=== PATIENT | female | born 1955 | race Caucasian/White ===

== ENCOUNTER 2021-02-04 10:41 | Outpatient (CLI) | payer MEDICARE, OTHER, SELFPAY ==
--- NOTE | ~2021-02-04 | XR_ITS ---
EXAMINATION: XR knee LT min 4V DATE: 02/04/2021 11:01 INDICATION: Left knee pain. TECHNIQUE: 4 views of left knee were obtained. COMPARISON: None. FINDINGS: Bone alignment is normal. No fracture. There is mild tricompartmental osteoarthritis charac terized by tiny marginal osteophytes. There is a small knee joint effusion. IMPRESSION: 1. Mild left knee osteoarthritis. 2. Small left knee joint effusion. Reviewed, dictated and finalized at location A.
== END 2021-02-04 10:42 | disposition home or self-care (01) ==
PROVIDERS: PCP Family Medicine; Visit Provider Physician Assistant
DX: M17.12 Unilateral primary osteoarthritis, left knee (principal); M25.462 Effusion, left knee
CPT/HCPCS: 73564

== ENCOUNTER 2021-08-03 11:16 | Emergency (ER) | payer MEDICARE, OTHER, SELFPAY ==
--- NOTE | ~2021-08-03 | CT_ITS ---
EXAMINATION: CT abdomen pelvis w con DATE: 08/03/2021 15:14 INDICATION: Abdominal pain, nausea vomiting and diarrhea. TECHNIQUE: Computed tomography (CT) of the abdomen and pelvis was performed with 100 mL Omnipaque-350 intravenous contrast. Automated exposure control and iterative reconstruction technique were employe d. The dose-length product was 349.21 mGy-cm. COMPARISON: 06/19/2011 FINDINGS: Bilateral mid to lower lung zones are clear. Heart size is normal. Atherosclerotic coronary artery ca lcific location. No pericardial or pleural effusion. Thoracic aorta is normal in caliber with no diss ection. Calcified mediastinal and left hilar lymph nodes consistent with old granulomatous disease. D iffuse hepatic steatosis with multiple fluid attenuation hepatic cysts, the largest measuring 3.6 cm in the right hepatic lobe. Gallbladder, pancreas, bilateral adrenal glands and kidneys are normal. Mu ltiple splenic calcifications consistent with old granulomatous disease. Normal gas-filled retrocecal appendix. Fluid throughout the colon and multiple loops of small bowel consistent with diarrhea. Mod erate sigmoid diverticulosis without adjacent from 3 change to suggest diverticulitis. Bladder is nor mal. No free intraperitoneal gas or fluid. No pathologically enlarged abdominal or pelvic lymphadenop athy. Mild lumbar levocurvature . Moderate to severe lumbar facet osteoarthritis with lower and left sided predominance. Large basocervical bone island at the proximal right femur. IMPRESSION: 1. Fluid throughout the large and small bowel consistent with diarrhea. Correlate for gastroenteritis . 2. Moderate sigmoid diverticulosis without evidence of acute diverticulitis. Reviewed, dictated and finalized at location B. LEAD IMPRESSION: 1. Fluid throughout the large and small bowel consistent with diarrhea. Correla te for gastroenteritis. 2. Moderate sigmoid diverticulosis without evidence of acute diverticulitis.
[2021-08-03 11:26] VITALS: BP 133/78; PULSE 105; RESP 18; TEMP 36.6; O2SAT 97
[2021-08-03 11:59] LABS: Add Urine Microscopic? YES; Appearance Urine Cloudy (Clear); Bacteria Urine Trace /hpf; Bilirubin Urine Negative (Negative); Blood Urine 1+ (Negative); Color Urine Amber (Yellow); Glucose Urine UA Negative (Negative); Ketones Urine Negative (Negative); Leukocyte Esterase Ur Negative LEU/UL (Negative); Mucus Urine Heavy /lpf; Nitrate Urine Negative (Negative); Protein Urine 2+ mg/dL (Negative); Specific Grav Ur 1.027 (1.001-1.035); Squamous Epithelial Cell Urine Few /hpf (Few); Urobilinogen Urine Negative mg/dL (<2.0); WBC Urine 0-3 /hpf
[2021-08-03 12:06] LABS: Alanine Aminotransferase 39 U/L (4-35); Albumin Level 5.5 g/dL (3.5-5.1); Alkaline Phosphatase 123 U/L (38-126); Anion Gap 14 mmol/L (8-16); Aspartate Amino Transferase 30 U/L (14-36); Blood Urea Nitrogen 14 mg/dL (7-17); Calcium 10.2 mg/dL (8.4-10.2); Carbon Dioxide 28 mmol/L (22-30); Chloride 97 mmol/L (98-107); Estimated CRCL calculation 47 ml/min; Estimated Glomerular Filt Rate > 60; Glucose 144 mg/dL (65-110); Lipase 60 U/L (23-300); Potassium 3.2 mmol/L (3.4-5.0); Sodium 139 mmol/L (137-145)
[2021-08-03 12:29] LABS: Basophils Percent Auto 0.3 % (0.2-1.2); Eosinophils Absolute Auto 0.2 K/mm3 (0-0.3); Eosinophils Percent Auto 2.2 % (0-4.4); Hematocrit 45.2 % (37.0-47.0); Hemoglobin 16.1 g/dL (12.0-15.0); Immature Granulocyte Absolute 0.06 K/mm3 (0.00-0.031); Immature Granulocyte Percent A 0.5 % (0-0.5); Lymphocytes Absolute Auto 0.68 K/mm3 (0.9-3.2); Lymphocytes Percent Auto 6.1 % (18.3-44.2); Mean Corpuscular HGB Conc 35.6 g/dl (32-36); Mean Corpuscular Hemoglobin 31.9 pg (26-34); Mean Corpuscular Volume 89.5 fl (80-100); Mean Platelet Volume 9.1 fl (7.4-10.4); Monocytes Absolute Auto 0.5 K/mm3 (0.1-0.6); Monocytes Percent Auto 4.5 % (2.6-8.5); Neutrophils Absolute Auto 9.6 K/mm3 (1.3-6.7); Neutrophils Percent Auto 86.4 % (45.5-73.1); Platelet Count Result 255 k/mm3 (150-375); Red Blood Count 5.05 M/mm3 (4.2-5.4); Red Cell Distribution Width 11.9 % (11.5-14.5); White Blood Count 11.1 K/mm3 (4.5-10.0)
--- NOTE | 2021-08-03 13:53 | ED.NAVMDI ---
HPI - Nausea/Vomiting/Diarrhea General Chief complaint: Nausea/Vomiting/Diarrhea Stated complaint: VOMITING AND DIARRHEA Time Seen by Provider: 08/03/21 13:26 Source: patient History of Present Illness HPI Narrative: Patient presents with nausea vomiting diarrhea and abdominal pain. Reports her symptoms been present for the past couple days and getting progressively worse. She is having a hard time keeping anything down today so she came to the ER for evaluation. Shorts history of diverticulosis. Her pain is over her entire abdomen is achy, constant, no clear aggravating or alleviating factors. She denies any blood bowel melena in her excretions. She does not know any sick contacts, recent antibiotics, recent camping trip/drinking out of streams. Related Data Allergies Allergy/AdvReac Type Severity Reaction Status Date / Time Penicillins Allergy Unknown RASH Verified 08/03/21 14:46 ???ANTIBIOTIC DURING AU.2007 Allergy Severe RASH--???PENICILLIN Uncoded 08/03/21 14:46 SURGERY BASE Review of Systems Review of Systems: CONSTITUTIONAL: Denies fever, chills, or sweats. EYES: Denies visual changes, redness, or discharge. ENT: Denies rhinorrhea, congestion, sore throat, or otalgia. CARDIOVASCULAR: Denies chest pain, palpitations, or edema. RESPIRATORY: Denies cough or dyspnea. GASTROINTESTINAL: Reports nausea vomiting diarrhea and abdominal pain GENITOURINARY: Denies dysuria or hematuria. SKIN: Denies rash or itching. MUSCULOSKELETAL: Denies back pain, joint pain, or myalgia. NEUROLOGIC: Denies headache, numbness, dizziness, or weakness. PSYCHIATRIC: Denies anxiety or depression. All systems reviewed & are unremarkable except as noted in HPI and below PMFSH Past Medical History Medical History (Updated 08/03/21 @ 16:38 by Juan C Worthy MD) Diverticulosis Surgical History Surgical History History of bladder suspension procedure Status post hysterectomy Status post unilateral salpingo-oophorectomy Family History Family History Father Family history of Alzheimer's disease Mother Family history of diabetes mellitus in first degree relative Family history of coronary artery disease Social History Social History Smoking status: Never smoker Second hand tobacco smoke exposure: No Alcohol intake: never Substance use: never Substance use type: does not use Gender identity (if verbalized by the patient): Female Exam Narrative: GENERAL: Well-appearing, well-nourished, and in no acute distress. HEAD: Normocephalic, atraumatic. EYES: PERRLA and EOMI. ENT: Nares clear, no rhinorrhea or epistaxis. Mucous membranes moist. NECK: Supple. No masses. No JVD CHEST: Clear to auscultation. No respiratory distress. No wheezes rales or rhonchi HEART: Regular rate and rhythm. No murmur heard. Normal peripheral pulses. ABDOMEN: Mild diffuse tenderness most noted in the left lower quadrant soft, nondistended, normal active bowel sounds. EXTREMITIES: Normal range of motion. No edema. SKIN: Warm, dry, no rash. NEURO: No focal deficits. Alert and oriented x3. PSYCH: Normal mood and affect. Course Reevaluation(s) Reevaluation #1: Patient ports feeling much improved results and plan reviewed with patient. Patient is comfortable with outpatient plan. Date: 08/03/21 Time: 16:33 Vital Signs Vital signs: Vital Signs Temperature 36.6 C 08/03/21 11:26 Pulse Rate 105 H 08/03/21 11:26 Respiratory Rate 18 08/03/21 11:26 Blood Pressure 133/78 08/03/21 11:26 Pulse Oximetry 97 08/03/21 11:26 Temperature 36.5 C 08/03/21 14:42 Pulse Rate 100 08/03/21 14:42 Respiratory Rate 18 08/03/21 14:42 Blood Pressure 129/63 08/03/21 14:42 Pulse Oximetry 100 08/03/21 14:42 MDM - Nausea/Vomiting/Diarrhea MDM Narrative Medical decisio
[2021-08-03 14:42] VITALS: BP 129/63; PULSE 100; RESP 18; TEMP 36.5; O2SAT 100
[2021-08-03] MEDS: SODIUM CHLORIDE 0.9% IV 1,000 ML 999 ML IV CONT (14:59)
[2021-08-03] MEDS: ONDANSETRON INJ 4 MG/2 ML VIAL IV PUSH (14:59)
--- NOTE | 2021-08-03 15:06 | PC.NURSE ---
Pt off floor to CT scan
== END 2021-08-03 17:03 | disposition home or self-care (01) ==
PROVIDERS: Emergency Provider Emergency Medicine; PCP Family Medicine
DX: R11.2 Nausea with vomiting, unspecified (principal); R19.7 Diarrhea, unspecified; R10.84 Generalized abdominal pain
CPT/HCPCS: 36415; 74177; 80053; 81001; 83690; 85025; 96361; 96374; 99284; J2405; J7030; Q9967

== ENCOUNTER 2023-08-29 10:23 | Outpatient (CLI) | payer MEDICARE, OTHER, SELFPAY ==
[2023-08-29 11:39] LABS: Influenza A QL RT-PCR Negative (Negative); Influenza B QL RT-PCR Negative (Negative); RSV RNA, RT-PCR Negative (Negative); SARS-CoV-2 RNA PCR Negative (Negative)
== END 2023-08-29 10:24 | disposition home or self-care (01) ==
LOC: ANHLAB 10:26
PROVIDERS: PCP Family Medicine; Visit Provider Family Medicine
DX: J06.9 Acute upper respiratory infection, unspecified (principal); Z20.822 Contact with and (suspected) exposure to COVID-19
CPT/HCPCS: 87637

== ENCOUNTER 2023-09-12 08:13 | Outpatient (CLI) | payer MEDICARE, OTHER, SELFPAY ==
--- NOTE | ~2023-09-12 | XR_ITS ---
XR chest 2V DATE: 09/12/2023 08:31 INDICATION: Cough TECHNIQUE: PA and lateral views COMPARISON: 09/11/2021 view chest FINDINGS: Normal heart size. No hilar or mediastinal enlargement. Calcified left hilar nodes consiste nt with old granulomatous disease. No pulmonary infiltrate or consolidation, pleural effusion or pulmonary vascular congestion or pneumo thorax. Osteopenia. IMPRESSION: No active cardiopulmonary disease or significant change since 09/11/2019 Reviewed, dictated and finalized at location B. GROUND CARETAKER IMPRESSION: No active cardiopulmonary disease or significant change since 2019
== END 2023-09-12 08:14 | disposition home or self-care (01) ==
LOC: ANHIMG 08:16
PROVIDERS: PCP Family Medicine; Visit Provider Physician Assistant Medical
DX: R05.9 Cough, unspecified (principal); R53.83 Other fatigue
CPT/HCPCS: 71046

== ENCOUNTER 2024-12-11 12:31 | Outpatient (CLI) | payer MEDICARE, OTHER, SELFPAY ==
--- NOTE | ~2024-12-11 | XR_ITS ---
Right Shoulder Technique: AP and axillary views were obtained. Clinical History: Pain Findings: No fracture or dislocation is seen. Osseous alignment is anatomic. The glenohumeral and acr omioclavicular joint spaces are preserved. Soft tissues are unremarkable. Impression: Unremarkable right shoulder radiographs. Reviewed, dictated and finalized at [facility]. Impression: Unremarkable right shoulder radiographs.
--- OUTSIDE RECORDS SUMMARY | 2024-12-11 12:48 | XMS_ITS | Referral Summary ---
Author Organization [facility] Address [address] [place] [address] Care Team Providers Care Offset Assistant Press Operator Name Role Phone Franco Prescott MD Primary Care Provider Alden Cerna MD Unavailable [phone] Li Rascon OT Unavailable [phone] Apryl Cummins PT Unavailable Unavailable Elijah Blake Unavailable Unavailable Martine Groves PTA Unavailable Unavailable Magda Kelley Unavailable Unava ilable Nicole Lamar Unavailable Unavailable Allergies Active Allergy Reactions Criticality Noted Date Comments Penicillin G Hives Medium 01/15/2018 Medications atorvastatin (LIPITOR) 10 mg tablet Take 1 tablet (10 mg total) by mouth daily 1 01/20/2018 Active hydroCHLOROthia zide (HYDRODIURIL) 25 mg tablet Take 0.5 tablets (12.5 mg total) by mouth daily 0 01/22/2018 Active metoprolol XL (TOPROL-XL) 25 mg 24 hr tablet Take 1 tablet (25 mg total) by mouth daily 9 01/20/[address] (PROTONIX) 40 mg EC tablet Take 1 tablet (40 mg total) by mouth daily 4 01/09/2018 Active dicyclomine (BENTYL) 10 mg capsule Take 1 capsule (10 mg total) by mouth 4 (four) times a day before meals and nightly 5 12/16/2018 Active donepeziL (ARICEPT) 5 mg tablet Take 1 tablet (5 mg total) by mouth nightly 05/13/2024 Active montelukast (SINGULAIR) 10 mg tablet Take 1 tablet (10 mg total) by mouth daily 07/21/2024 Active Active Problems Problem Noted Date Diagnosed Date Acute pancreatitis without i nfection or necrosis, unspecified pancreatitis type 08/07/2024 Joint stiffness of hand, right 03/17/2019 Disorder of wrist region 01/22/2018 Closed displaced transverse fracture of right pa tella 01/18/2018 Social History Tobacco Use Types Packs/Day Years Used Date Smoking Tobacco: Never Smokeless Tobacco: Never Alcohol Use Standard Drinks/Week Comments No 0 (1 standard drink = 0.6 oz pur e alcohol) AUDIT-C Answer Date Recorded Q1: How often do you have a drink containing alc ohol? Monthly or less 08/07/2024 Q2: How many drinks containi ng alcohol do you have on a typical day when you are drinking? 1 or 2 08/07/2024 Q3: How often do you have si x or more drinks on one occasion? Never 08/07/2024 Personal Safety Answer Date Recorded Have you ever been in or are you currently in a harmful physical or emotional relationship or is someone making you feel afraid or unsafe? Denies 08/07/2024 Comments No Sex and Gender Information Value Date Recorded Sex Assigned at Not on file Legal Sex Female 3:50 PM NEW GRAD RN Gender Identity Not on file Sexual Orientation Not on file Last Filed Vital Signs Vital Sign Reading Time Taken Comments Blood Pressure 117/68 08/08/2024 7:14 AM NEW GRAD RN Pulse 76 08/08/2024 9:25 AM NEW GRAD RN Temperature 36.6 C (97.8 F) 08/08/2024 7:14 AM NEW GRAD RN Respiratory Rate 18 08/08/2024 7:14 AM NEW GRAD RN Oxygen Saturation 95% 08/08/2024 7:1 4 AM NEW GRAD RN Inhaled Oxygen Concentration - - Weight 59 kg (130 lb) 08/07/2024 2:00 PM NEW GRAD RN Height 157.5 cm (5' 2 ) 08/07/2024 2:00 PM NEW GRAD RN Simultaneous filing. User may be unaware of other data. Body Mass Index 23.78 08/07/2024 2:00 PM NEW GRAD RN Plan of Treatment Not on file Procedures Procedure Name Priority Date/Time Associated Diagnosis Comments DEXA AXIAL SKELETON BONE DENSITY 1 OR MORE SITES Schedule Routine, Read Routine (OP Routine) 06/20/2024 11:15 AM CDT Asymptomatic menopausal state Other specified disorders of bone density and structure, unspecified site Acquired absence of both cervix and uterus SCREENING MAMMOGRAM BILATERAL W FAUSTO Schedule Routine, Read Routine (OP Routine) 12/04/2023 2:54 PM CDT Screening mammogram, encounter for from Last 3 Months or Most Recently Relevant to Health Maintenance Results * Dexa Axial Skeleton Bone Density 1 or 2 Site (06/20/2024 11:15 AM CDT) Anatomical Region Laterality Modality Body N/A Other 06/20/2024 8:03 PM CDT Narrative 06/20/2024 8:04 PM CDT EXAM DESCRIPTION: DEXA AXIAL SKELETON BONE DENSITY 1 OR MORE SITES REASON FOR STUDY: 69 y/o year old F with given history of: 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 IMPRESSION: Osteoporosis. REFERENCE: Bone mineral density: T-Score: Normal (T-score above or = -1.0) Low bone mass (T-score between -1.0 and -2.5) replaces the previously used term osteopenia Osteoporosis (T-score = or below -2.5) Z-Score: Within the expected range for age (Z-score above -2.0) Below the expected range for age (Z-score is -2.0 or below) Please see below follow up recommendations. Medical evaluation for secondary causes of low bone mineral density may be appropriate. FRAX is a World Health Organization validated fracture risk assessment tool that calculates a person's 10 year probability of a major osteoporosis related fracture and hip fracture. According to the National Osteoporosis Foundation guidelines, postmenopausal women and men age 50 or older with low bone mass and a 10 year probability of a major osteoporosis related fracture = or greater than 20% or a 10 year probability of a hip fracture = or greater than 3% should be considered for pharmacological treatment for the prevention of osteoporosis. For further information, including treatment recommendations, please refer to the 2019 ISCD Official Positions (http://www.iscd.org) and the NOF's Clinician's Guide to Prevention and Treatment of Osteoporosis (http://www.nof.org/professionals/clinical-guidelines) THIS IS AN ELECTRONICALLY VERIFIED FINAL REPORT 06/20/2024 8:04 PM - Electronically signed by Moe Moreau M.D. 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 IMPRESSION: Osteoporosis. REFERENCE: Bone mineral density: T-Score: Normal (T-score above or = -1.0) Low bone mass (T-score between -1.0 and -2.5) replaces thepreviously used term osteopenia Osteoporosis (T-score = or below -2.5) Z-Score: Within the expected range for age (Z-score above -2.0) Below the expected range for age (Z-score is -2.0 or below) Please see below follow up recommendations. Medical evaluation forsecondary causes of low bone mineral density may be appropriate. FRAX is a World Health Organization validated fracture risk assessmenttool that calculates a person's 10 year probability of a major osteoporosisrelated fracture and hip fracture. According to the National OsteoporosisFoundation guidelines, postmenopausal women and men age 50 or older with low bonemass and a 10 year probability of a major osteoporosis related fracture = or greater than 20% or a 10 year probability of a hip fracture = or greaterthan 3% should be considered for pharmacological treatment for the preventionof osteoporosis. For further information, including treatment recommendations, please referto the 2019 ISCD Official Positions (http://www.iscd.org) and the NOF's Clinician's Guide to Prevention and Treatment of Osteoporosis (http://www.nof.org/professionals/clinical-guidelines) THIS IS AN ELECTRONICALLY VERIFIED FINAL REPORT 06/20/2024 8:04 PM - Electronically signed by Moe Moreau M.D. MF: MIA Report ID: [id number] Reading Location: [place] [address] Franco Prescott MD IMG DXA PROCEDURES Viviana l Result * Screening Mammogram Bilateral W Fausto (12/04/2023 2:54 PM CDT) Anatomical Region Laterality Modality Breast Bilateral Mammography 12/05/2023 9:42 AM CDT Impressions 12/05/2023 9:42 AM CDT There is no mammographic evidence of malignancy. A 1 year screening mammogram is recommended. BI-RADS: 1 - Negative. The patient has been or will be contacted. The patient will be entered into a reminder system with a target due date of 1 year for her next mammogram. Electronically signed by: Magaly Arreola M.D. Narrative 12/05/2023 9:42 AM CDT EXAMINATION: SCREENING MAMMOGRAM BILATERAL W FAUSTO ORDERING HEALTHCARE PROVIDER: SELF SCREENING MAMMOGRAM HISTORY: Routine screening mammography. COMPARISON: 08/24/2022, 01/28/2019, 06/26/2016 TECHNIQUE: CC and MLO views of the bilateral breasts were obtained with digital technique using breast tomosynthesis with C view. Computer aided detection was utilized. FINDINGS: DENSITY: There are scattered fibroglandular elements in the bilateral breasts. BREASTS: There are no suspicious masses, suspicious calcifications, or other suspicious findings in either breast. There has been no suspicious interval change. us Self Screening Mammogram IMG MAMMO PROCEDURES Fi nal Result from Last 3 Months or Most Recently Relevant to Health Maintenance Insurance [employer] [address] MEDICARE [facility] MEDICARE [facility] MEDICARE [facility] WORKERS COMPENSATION GENERIC Member Subscriber Plan / Payer (Ef fective 2018-Present) Name:Yoanna Yuan Member ID:[id number] Relation to Subscriber:Self Name:Yoanna Yuan Subscriber ID:xx [id number] Payer ID:[id number] Type:WORKERS COMPENSATION Address: [address] [address] [place] [address] Care Teams Offset Assistant Press Operator Relationship Specialty Start Date End Date Franco Prescott MD [address] [place] [address] PCP - General 01/15/18 Alden Cerna MD [address] [facility] [place] [address] Surgeon Orthopedic Surgery 02/19/18 Li Rascon OT [address] [place] [address] [place] [address] Occupational Therapist Occupational Therapy 02/26/18 Apryl Cummins, PT Physical Therapist Physical Therapy 03/07/18 Elijah Blake Roofing Sales Representative Physical Therapy 03/08/18 Martine Groves, TRANSMISSION SUPERINTENDENT Roofing Sales Representative Physical Therapy 03/12/18 Magda Kelley Physician Retail Planning Manager Orthopedic Surgery 03/27/18 Nicole Lamar COTA Occupational Therapist Occupational Therapy 03/27/18 [facility] [address] [place] [id number] Prosthetics Technician 02/19/18
--- OUTSIDE RECORDS SUMMARY | 2024-12-11 12:48 | XMS_ITS | Clinical Summary ---
Author Organization [facility] Address [address] [place] [address] Care Team Providers Care Inspector Soldering Name Role Phone Franco Prescott MD Primary Care Provider Alden Cerna MD Unavailable [phone] Li Rascon OT Unavailable [phone] Apryl Cummins PT Unavailable Unavailable Elijah Blake [...] transverse fracture of right pa tella 01/18/2018 Surgical History Surgery Date Site/Laterality Comments HYSTERECTOMY OOPHORECTOMY Medical History Medical History Date Comments Hypertension GERD (gastroesophageal reflux disease) H/O: hysterectomy Family History Medical History Relation Name Comments Alcohol abuse Brother Alzheimer's disease Father Heart disease Mother Hypertension Mother Breast cancer Neg Hx Ovarian cancer Neg Hx Thyroid cancer Neg Hx Relation Name Status Comments Brother Father Mother Social History Tobacco Use Types Packs/Day Years [...] on file 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 Gender Identity Not on file Sexual Orientation Not on file Obstetrics History Para Term AB IAB SAB Ectopic Multiple Livin g Live Births 2 2 2 Date Outcome GA Total Labor Labor/2nd/3rd Weight Sex Type Anes PTL Noemi A1 A5 Name Clin Term Term Last Filed Vital Signs Vital Sign Reading Time Taken Comments Blood Pressure 117/68 08/08/2024 7:14 AM RETAIL ASSISTANT STORE MANAGER Pulse 76 08/08/2024 9:25 AM RETAIL ASSISTANT STORE MANAGER Temperature 36.6 C (97.8 F) 08/08/2024 7:14 AM RETAIL ASSISTANT STORE MANAGER Respiratory Rate 18 08/08/2024 7:14 AM RETAIL ASSISTANT STORE MANAGER Oxygen Saturation 95% 08/08/2024 7:1 4 AM RETAIL ASSISTANT STORE MANAGER Inhaled Oxygen Concentration - - Weight 59 kg (130 lb) 08/07/2024 2:00 PM RETAIL ASSISTANT STORE MANAGER Height 157.5 cm (5' 2 ) 08/07/2024 2:00 PM RETAIL ASSISTANT STORE MANAGER Simultaneous filing. User may be unaware of other data. Body Mass Index 23.78 08/07/2024 2:00 PM RETAIL ASSISTANT STORE MANAGER Plan of Treatment Health Maintenance Due Date Last Done Comments Colon Cancer Screening-Colonoscopy 1955 Depression Screening 1955 Hepatitis C Screening 1955 Hepatitis B Screening 1972 Zoster Vaccine (1 of 2) 2004 Well Visit 65+ 2019 Pneumococcal vaccine 65+ (2 of 2 - PPSV23) 09/26/2020 09/26/2019 Covid-19 Vaccine (2 - 2023-2 5 season) 2024 11/01/2020 Breast Cancer Screening-Mammogram 12/03/2024 12/04/2023, 08/24/2022, 01/28/2019, Additional history exists Influenza Vaccine (Season Ended) 2025 05/11/2020, 09/26/2019, 06/08/2018 Fall Risk Assessment 08/08/2025 08/08/2024 DTaP/Tdap/Td Vaccine (2 - Td or Tdap) 11/19/2025 11/20/2015 Osteoporosis Screening-Bone Density Scan 06/20/2026 06/20/2024 Procedures Procedure Name Priority Date/Time Associated Diagnosis [...] F with given history of: 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 MF: MIA Report ID: [id number] Reading Location: [place] [address] Franco Prescott MD IMG DXA PROCEDURES Viviana [...] Most Recently Relevant to Health Maintenance Insurance [place] [employer] [place] MEDIC[place] [facility] [place] [employer] [place] [facility] MEDICARE [facility] HARDY Uribe [id number] [employer] GENERIC Member Subscriber Plan / Payer (Ef fective 2018-Present) Name:Yoanna Yuan Member ID:[id number] Relation to Subscriber:Self Name:Yoanna Yuan Subscriber ID:xx [id number] Payer ID:[id number] Type:WORKERS COMPENSATION Address: [address] [address] [place] [address] Care Teams Inspector Soldering Relationship Specialty Start Date End Date Franco Prescott MD [address] [place] [address] PCP - General 01/15/18 Alden Cerna MD [address] [facility] [place] [address] Surgeon Orthopedic Surgery 02/19/18 Li Rascon OT [address] [place] [address] Occupational Therapist Occupational Therapy 02/26/18 Apryl Cummins, CARSON Physical Therapist Physical Therapy 03/07/18 Elijah Blake [employer] Physical Therapy 03/08/18 Martine Groves PTA [employer] Physical Therapy 03/12/18 Magda Kelley Physician [employer] Machine Operator Orthopedic Surgery 03/27/18 Nicole Lamar COTA Occupational Therapist Occupational Therapy 03/27/18 Rachel Munoz [facility] [address] [place] [address] Power Bender Operator 02/19/18
== END 2024-12-11 12:32 | disposition home or self-care (01) ==
PROVIDERS: PCP Family Medicine; Visit Provider Family Medicine
DX: M25.511 Pain in right shoulder (principal)
CPT/HCPCS: 73030

== ENCOUNTER 2025-06-05 11:37 | Outpatient (CLI) | payer MEDICARE, OTHER, SELFPAY ==
--- NOTE | ~2025-06-05 | XR_ITS ---
EXAMINATION: XR chest 2V, 06/05/2025 12:07 CDT HISTORY: R07.9 - Chest pain, unspecified COMPARISON: No comparisons available. Technique: 2 views obtained. Findings: The lungs are clear, no effusion. No pneumothorax. Heart is normal size. Mediastinal and hilar contours are within normal limits. Bony thorax no acute abnormality. Impression: No acute cardiopulmonary abnormality. Reviewed, dictated and finalized at location P. Impression: No acute cardiopulmonary abnormality.
== END 2025-06-05 11:38 | disposition home or self-care (01) ==
PROVIDERS: PCP Family Medicine
DX: R07.9 Chest pain, unspecified (principal); R07.81 Pleurodynia
CPT/HCPCS: 71046

== ENCOUNTER 2025-07-08 08:51 | Outpatient (CLI) | payer MEDICARE, OTHER, SELFPAY ==
--- OUTSIDE RECORDS SUMMARY | 2016-06-12 05:45 | XMS_ITS | Continuity of Care Document ---
Author Organization [facility] Address [address] [place] [id number] Phone Care Team Providers Care Leadership Development Instructor Name Role Phone Robert Young MD Unavailable Unavailabl e Allergies, Adverse Reactions, Alerts Substance Reaction Status Criticality PSEUDOEPHEDRINE HCL stomach pain, nausea(severe) Activ e No Information Medications Medication Instructions Dosage Effective Dates (start - stop) Status Comments pravastatin 40 mg Tab take 1 tablet (40M G) by oral route every day 40 MG - Active trazodone 100 mg Tab take 1 tablet (100M G) by oral route every day at bedtime 100 MG - Active Procedures Procedure Date Colonoscopy Flex; Dx (sep Pro) 16 Colonoscopy Flex; W/remov Les- 12 Colonoscopy Flex; Dx (sep Pro) 12 Ugi Endo; W/bx 1/mx ASC Facility Charge ASC Facility Charge Level Iv-surg Path Gross/micro 12 Offic Cons New/estab Mod Iron Iron Binding Capacity Ferritin Ag-immunoassay; Hep B Surface 2 Hepatitis B Surface Antibody Hepatitis C Antibody; Hepatitis B Core Antib; Igg & 2 [id number]; Phenotype 12 Ogrvo-[id number]-[id number]; Tot Antinuclear Antib Advance Directives Directive Yes / No Effective Date File Name No Information Encounters Encounter Description Practice Location Reason(s) For Visit Diagnoses Date Provider Providers Copied on Encounter [facility], [address] [place] [address], [id number] tel:[phone] [facility] [employer] No Information 6 Hector graves [address] [place] [address], [id number], [place]. tel:[phone] [facility], [address] [place] [address], [id number] tel:[phone] [facility] [employer] No Information 6 Judith Kay. [address] [place] [address], [id number], [place]. tel:[phone] Referring Provider: German Roth MD, [address] [place] [address], [id number]. tel:[phone] [facility] [employer] [facility], [address] [place] [address], [id number] tel:[phone] [facility] [employer] No Information 2 Larry To. [address] [place] [address], [id number], [place]. tel:[phone] Referring Provider: German Roth MD, [address] [place] [address], [id number]. tel:[phone] [facility] [employer] [facility], [address] [place] [address], [id number] tel:[phone] [facility] [employer] 2 Keo Abad. [address] [place] [address], [id number], [place]. tel:[phone] Referring Provider: German Roth MD, [address] [place] [address], [id number]. tel:[phone] [facility] [employer], [address] [place] [address], [id number] tel:[phone] [facility] No Information 2 [facility]. [address] [place] [address], [id number], . tel:[phone] Referring Provider: Pollo Rutherford, [address] [place] [address], [id number] . tel:[phone] [facility], [address] [place] [address], [id number] tel:[phone] [facility] [employer] No Information 2 Keo Abad. [address] [place] [address], [id number], [place]. tel:[phone] Referring Provider: German Roth MD, [address] [place] [address], [id number]. tel:[phone] Offic Cons New/estab Mod [facility], [address] [place] [address], [id number] tel:[phone] [facility] [employer] Anxiety disorder, generalizedAr thritis, unspecified siteAbnormal Liver Enzyme Levels Nov- 2 Keo Abad. [address] [place] [address], [id number], [place]. tel:[phone] Referring Provider: Angelic Caban MD, [address] [place], [address]. tel:[phone] [facility], [address] [place] [address], [id number] tel:[phone] [facility] [employer] No Information 2 Keo Abad. [address] [place] [address], [id number], [place]. tel:[phone] Referring Provider: Angelic Caban MD, [address], [place], [address]. tel:[phone] Family History Family Member Type Diagnosis Age At Onset No Information Payers Payer name Insurance type Covered green party ID [id number] Social History Type Description Quantity Date Captured Comments Sex Female Smoking Status No Information Chief Complaint And Reason For Visit No Information Reason For Referral Reason For Referral No Information History Of Present Illness Encounter Date Complaint History Of Prese nt Illness No Information Functional Status Date Functional Assessmen t No Information Instructions Date Instruction Additional Infor mation No Information Assessments Type Assessment Date No Information Patient Care Teams Name Effective Dates (start - stop) Status Members No Information
--- NOTE | 2025-07-08 | EST_ITS ---
Patient Info Name: Yoanna Yuan Age: 70 years : 1955 Gender: Female Ht: 62 in Wt: 125 lbs BSA: 1.58 m2 HR: 59 bpm BP: 130 / 67 mmHg Exam Date: 07/08/2025 10:54 AM Patient Status: O Admit Date: 07/08/2025 Exam Type: CA stress waldo w NM A regadenoson stress test was performed. Staff Referring Physician: Felipe Mustafa Attending Provider: Felipe Mustafa Exercise Technologist: Renée Van Exercise Physician: Janes Cain DO Summary 1. 1. Negative lexiscan stress test for ischemic ST changes by ECG criteria. 2. 2. Stable hemodynamics throughout the test. 3. 3. Nuclear scan to follow and will be reported separately. Please correlate with it. 4. 4. Patient informed of the above results. Protocol: Lexiscan Stress ECG Details Stage: REST Duration (min): 2 min : 10 sec HR (bpm): 60 SBP (mmHg): 130 DBP (mmHg): 67 Stage: REST Duration (min): 8 min : 48 sec HR (bpm): 55 SBP (mmHg): 130 DBP (mmHg): 67 Stage: STAGE 1 Duration (min): 0 min : 59 sec HR (bpm): 73 SBP (mmHg): 133 DBP (mmHg): 70 Stage: RECOVERY Duration (min): 1 min : 0 sec HR (bpm): 99 SBP (mmHg): 133 DBP (mmHg): 70 Stage: RECOVERY Duration (min): 2 min : 0 sec HR (bpm): 90 SBP (mmHg): 133 DBP (mmHg): 70 Stage: RECOVERY Duration (min): 3 min : 0 sec HR (bpm): 83 SBP (mmHg): 118 DBP (mmHg): 74 Stage: RECOVERY Duration (min): 3 min : 7 sec HR (bpm): 86 SBP (mmHg): 118 DBP (mmHg): 74 Rest HR: 55 bpm Peak HR: 101 bpm Rest Sys BP: 130 mmHg Peak Sys BP: 133 mmHg Max Pred HR: 149 bpm % Max Pred HR: 68 % Target HR: 127 bpm Max RPP: 13,433 bpm*mmHg Termination Reason: Completed protocol Cardiac Symptoms: Shortness of breath Total Time: 1 min : 0 sec Rest Flores BP: 67 mmHg Peak Flores BP: 70 mmHg Total Dose: 0.4 mg Resting ECG Sinus bradycardia, borderline ST-T wave abnormality in ant/inf leads. Stress ECG No ST changes. Arrhythmias None. Report Signatures
--- NOTE | ~2025-07-08 | NM_ITS ---
EXAMINATION: NM waldo stress w perfusion DATE: 07/08/2025 12:38 INDICATION: Chest pain TECHNIQUE: Rest images were obtained following intravenous administration of 10.2 mCi Tc99m tetrofosmin (Myoview). The patient was infused intravenously with Lexiscan (Regadenoson). Then, 30 mCi Tc99m tetrofosmin (Myoview) was administered intravenously, and stress images were obtained. Data was recons tructed into short axis and horizontal and vertical long axis SPECT images. Gated SPECT images were also obtained. COMPARISON: None. FINDINGS: There is no definite reversible or fixed perfusion abnormality to suggest ischemia or infarction. There is normal left ventricular chamber size, wall motion and ejection fraction. Left ventricular ejection fraction measures >70%. IMPRESSION: 1. Normal myocardial perfusion at rest and during stress. 2. Left ventricular ejection fraction measuring >70%. Reviewed, dictated and finalized at location A. [facility] TE[facility]
--- OUTSIDE RECORDS SUMMARY | 2025-07-08 09:22 | XMS_ITS | Clinical Summary ---
Author Organization [facility] Address [address] [place] [address] Care Team Providers Care Thermoplastic Technician Name Role Phone Franco Prescott MD Primary Care Provider Alden Cerna MD Unavailable [phone] Li Rascon OT Unavailable [phone] Apryl Cummins PT Unavailable Unavailable Elijah Blake Unavailable Unavailable Martine Groves PTA Unavailable Unavailable Magda Kelley Unavailable Unava ilable Nicole Lamar BYERS Unavailable Unavailable Allergies Active Allergy Reactions Criticality [...] transverse fracture of right pa tella 01/18/2018 Encounters Date Type Department Care Team Description 06/26/2025 8:35 PM CDT - 06/27/2025 12:37 AM CDT Emergency [facility] Emergency Department [address] [place] [address] Chest pain, unspecified type (Primary Dx); Abdominal pain, unspecified abdominal location Discharge Disposition: Discharge to home or self care from Last 3 Months Surgical History Surgery Date Site/Laterality Comments HYSTERECTOMY [...] making you feel afraid or unsafe? 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 Gender Identity Not on file Sexual Orientation Not on file Obstetrics History Para Term AB IAB SAB Ectopic Multiple Livin g Live Births 2 2 2 Date Outcome GA Total Labor Labor/2nd/3rd Weight Sex Type Anes PTL Noemi A1 A5 Name Clin Term Term Last Filed Vital Signs Vital Sign Reading Time Taken Comments Blood Pressure 97/56 06/27/2025 12:00 AM CDT Pulse 54 06/27/2025 12:00 AM CDT Temperature 36.1 C (97 F) 06/26/2025 8:14 PM CDT Respiratory Rate 16 06/27/2025 12:00 AM CDT Oxygen Saturation 100% 06/27/2025 12:00 AM CDT Inhaled Oxygen Concentration - - Weight 59 kg (130 lb) 06/26/2025 8:14 PM CDT Height 157.5 cm (5' 2) 06/26/2025 8:14 PM CDT Body Mass Index 23.78 06/26/2025 8:14 PM CDT Plan of Treatment Health Maintenance Due Date Last Done Comments Colon Cancer Screening-Colonoscopy 1955 Depression Screening 1955 Hepatitis C Screening 1954 Hepatitis B Screening 1972 Zoster Vaccine (1 of 2) 2004 Well Visit 65+ 2019 Pneumococcal vaccine 65+ (2 of 2 - PCV20 or PCV21) 09/26/2020 09/26/2019 Covid-19 Vaccine (2 - 2024-2 6 season) 2025 11/01/2020 Influenza Vaccine (#1) 2025 0, 09/26/2019, 06/08/2018 Fall Risk Assessment 08/08/2025 08/08/2024 DTaP/Tdap/Td Vaccine (2 - Td or Tdap) 11/19/2025 11/20/2015 Breast Cancer Screening-Mammogram 01/14/2026 01/14/2025, 12/04/2023, 08/24/2022, Additional history exists Osteoporosis Screening-Bone Density Scan 06/20/2026 06/20/2024 Procedures Procedure Name Priority Date/Time Associated Diagnosis Comments MAGNESIUM Add-On 06/26/2025 10:32 PM CDT TROPONIN T HIGH-SENSITIVITY 2-HOUR Timed 06/26/2025 10:32 PM CDT URINALYSIS AND REFLEX TO MICROSCOPIC AND CULTURE STAT 06/26/2025 10:[address] ABDOMEN PELVIS W CONTRAST ED 06/26/2025 10:15 PM CDT XR CHEST 1 VIEW ED 06/26/2025 8:37 PM CDT EGFR STAT 06/26/2025 8:30 PM CDT DIFFERENTIAL AUTO STAT 06/26/2025 8:3 0 PM CDT TROPONIN T HIGH-SENSITIVITY SERIES (BASELINE, 2HR, 4HR, 6HR) STAT 06/26/2025 8:30 PM CDT COMPREHENSIVE METABOLIC PANEL STAT 06/26/2025 8:30 PM CDT CBC WITH AUTO DIFFERENTIAL STAT 06/26/2025 8:30 PM CDT ECG 12-LEAD STAT 06/26/2025 8:23 PM CDT SCREENING MAMMOGRAM BILATERAL W FAUSTO Schedule Routine, Read Routine (OP Routine) 01/14/2025 4:13 PM CDT Screening mammogram, encounter for DEXA AXIAL SKELETON BONE DENSITY 1 OR MORE SITES Schedule Routine, Read Routine (OP Routine) 06/20/2024 11:15 AM CDT Asymptomatic menopausal state Other specified disorders of bone density and structure, unspecified site Acquired absence of both cervix and uterus from Last 3 Months or Most Recently Relevant to Health Maintenance Results * Troponin T high-sensitivity 2-hour (06/26/2025 10:32 PM CDT) Trop T hs <6 <=14 ng/L Comment: Interpretive Data For further hscTnT resources including the diagnostic algorithm and an aid in interpretation, copy and paste this link: https://nrl.testcatalog.org/show/hsTrop Current Interpretive Data last revised 2020. Trop T hs delta 0 ng/L [facility] ([facility]) Trop T hs interp Insignificant [facility]) Blood 06/26/2025 10:3 2 PM CDT 06/26/2025 10:34 PM CDT Alison Michelle [place] LAB BLOOD ORDERABLES Final Resu lt Performing Organization Address [facility]/ZIP Co de Phone Number REN [facility]ENN[facility] (RIP) [address] [place] [address] * Magnesium (06/26/2025 10:32 PM CDT) Magnesium 1.9 1.4 - 2.5 mg/dL Blood 06/26/2025 10:3 2 PM CDT 06/26/2025 10:34 PM CDT [facility] Martinez PA LAB BLOOD ORDERABLES Final Resu lt Performing Organization Address [facility] de Phone Number [facility] (RIP) [address] [place] [address] * (ABNORMAL) Urinalysis reflex to microscopic and culture Urine (06/26/2025 10:21 PM CDT) Color, ur Yellow Yellow Clarity, ur Clear Clear [facility] ([facility]) Specific gravity, ur 1.037(H) 1.003 - 1.030 [facility] pH, urine 7.5 [facility] Comment: Interpretive Data U rine pH is affected by diet, medications, systemic acid-base disturbances, and renal tubular function. pH may affect urinary stone formation. For example, urine pH below 6.0 may help reduce the tendency for calcium phosphate stones and pH greater than 6.0 may reduce the tendency for uric acid stone formation. Source: [facility] [employer] Current Interpretive Data was last revised on 2017 Protein, ur ql Negative Negative [facility] ([facility]) Glucose, ur ql Negative Negative [facility] ([facility]) Ketones, ur Negative Negative [facility] ([facility]) Bilirubin, ur Negative Negative [facility]) Blood, ur Negative Negative [facility]) Urobilinogen, ur 4.0(A) <2.0 mg/dL [facility] ([facility]) Nitrite, ur Negative Negative [facility] ([facility]) Leukocyte esterase, ur Negative Negative [facility]) UA reflex comment Reflex conditions for microscopic UA and culture not met. [facility] Urine 06/26/2025 10:2 1 PM CDT 06/26/2025 10:26 PM CDT us Alison [facility] LAB MICROBIOLOGY - GENERAL ORDParveen CORREIA Final Result [facility] ([facility]) [address] [facility] Department [place] [address] * CT Abdomen Pelvis W Contrast (06/26/2025 10:15 PM CDT) Anatomical Region Laterality Modality Body N/A Computed Tomogra phy 06/26/2025 10:3 8 PM CDT Impressions 06/26/2025 10:38 PM CDT 1. No acute process is seen. No findings are seen to explain the patient's symptoms. Electronically signed by: Zak Zelaya M.D. Narrative 06/26/2025 10:38 PM CDT MEDICAL RECORDS NUMBER: [id number] PROCEDURE: CT ABDOMEN PELVIS W CONTRAST DATE: 06/26/2025 10:05 PM HISTORY: 70 years old Female. Abdominal pain, acute, nonlocalized. IV Contrast: Optiray 350, 75 cc Oral Contrast: No oral contrast was utilized. COMPARISON: 08/06/2024 RADIATION DOSE INFORMATION: Automated exposure control dose reduction techniques were used. FINDINGS: Lung bases: Limited evaluation of the lung bases demonstrates no focal airspace process or pneumothorax. Mediastinum:Lower mediastinal structures appear unremarkable. Liver: Multiple hypodense lesions consistent with cysts are again noted in the liver. These appear unchanged from previous. Biliary ducts: There is no evidence of intrahepatic or extrahepatic biliary ductal dilatation. Gallbladder: No abnormality is seen of the gallbladder. Spleen: The spleen is normal in size without focal lesion. Stomach: The stomach appears unremarkable. Pancreas: The pancreas is unremarkable. Adrenal glands: The adrenal glands are unremarkable. Kidneys: The kidneys appear grossly unremarkable. No hydronephrosis is seen. No focal lesions are seen. No renal or ureteral stones are seen. Aorta and IVC: The aorta and IVC are patent and are normal in size. Diffuse atherosclerotic vascular disease is noted. Mesenteric vessels: Major mesenteric vessels appear to be intact. Bowel: The visualized portions of the small and large bowel are normal in caliber. Diverticulosis is seen of the sigmoid colon without clear evidence of diverticulitis at this time. Appendix: The not clearly identified. Pelvis:Pelvic structures appear unremarkable. Lymph nodes: There is no evidence of lymphadenopathy. Osseous structures: The osseous structures are intact. No lytic or blastic osseous lesion is noted. The bones appear osteopenic. Degenerative changes are seen of the lower lumbar spine Free fluid/free air: None Procedure Note Zak Zelaya MD - 06/26/2025 MEDICAL RECORDS NUMBER: [id number] PROCEDURE: CT ABDOMEN PELVIS W CONTRAST DATE: 06/26/2025 10:05 PM HISTORY: 70 years old Female. Abdominal pain, acute, nonlocalized. IV Contrast: Optiray 350, 75 cc Oral Contrast: No oral contrast was utilized. COMPARISON: 08/06/2024 RADIATION DOSE INFORMATION: Automated exposure control dose reduction techniques were used. FINDINGS: Lung bases: Limited evaluation of the lung bases demonstrates no focal airspace process or pneumothorax. Mediastinum:Lower mediastinal structures appear unremarkable. Liver: Multiple hypodense lesions consistent with cysts are again noted in the liver. These appear unchanged from previous. Biliary ducts: There is no evidence of intrahepatic or extrahepatic biliary ductal dilatation. Gallbladder: No abnormality is seen of the gallbladder. Spleen: The spleen is normal in size without focal lesion. Stomach: The stomach appears unremarkable. Pancreas: The pancreas is unremarkable. Adrenal glands: The adrenal glands are unremarkable. Kidneys: The kidneys appear grossly unremarkable. No hydronephrosis is seen. No focal lesions are seen. No renal or ureteral stones are seen. Aorta and IVC: The aorta and IVC are patent and are normal in size. Diffuse atherosclerotic vascular disease is noted. Mesenteric vessels: Major mesenteric vessels appear to be intact. Bowel: The visualized portions of the small and large bowel are normal in caliber. Diverticulosis is seen of the sigmoid colon without clear evidence of diverticulitis at this time. Appendix: The not clearly identified. Pelvis:Pelvic structures appear unremarkable. Lymph nodes: There is no evidence of lymphadenopathy. Osseous structures: The osseous structures are intact. No lytic or blastic osseous lesion is noted. The bones appear osteopenic. Degenerative changes are seen of the lower lumbar spine Free fluid/free air: None IMPRESSION: 1. No acute process is seen. No findings are seen to explain the patient's symptoms. Electronically signed by: Zak Zelaya M.D. [facility] [place] PROCEDURES Final Result * XR Chest 1 Vw Portable (If patient hemodynamically UNstable or UNable to ambulate) (06/26/2025 8:37PM CDT) Anatomical Region Laterality Modality Body, Chest N/A Computed Radiogr aphy 06/26/2025 8:44 PM CDT Impressions 06/26/2025 8:44 PM CDT FINDINGS/IMPRESSION: Lungs: The lungs are clear. Mediastinum: Mediastinal structures appear unremarkable.Calcified left hilar lymph node is consistent with previous imaging.. Skeletal: The skeletal structures appear unremarkable. Electronically signed by: Zak Zelaya M.D. Narrative 06/26/2025 8:44 PM CDT MEDICAL RECORDS NUMBER: [id number] PROCEDURE: XR CHEST 1 VIEW DATE: 06/26/2025 8:35 PM HISTORY: 70 years old Female. chest pain Views:1 COMPARISON: None Procedure Note Zak Zelaya MD - 06/26/2025 MEDICAL RECORDS NUMBER: [id number] PROCEDURE: XR CHEST 1 VIEW DATE: 06/26/2025 8:35 PM HISTORY: 70 years old Female. chest pain Views:1 COMPARISON: None IMPRESSION: FINDINGS/IMPRESSION: Lungs: The lungs are clear. Mediastinum: Mediastinal structures appear unremarkable.Calcified left hilar lymph node is consistent with previous imaging.. Skeletal: The skeletal structures appear unremarkable. Electronically signed by: Zak Zelaya M.D. [facility] XR PROCEDURES Final Result * Troponin T high-sensitivity series (baseline, 2hr, 4hr, 6hr) (06/26/2025 8:30 PM CDT) Trop T hs <6 <=14 ng/L Comment: Interpretive Data For further hscTnT resources including the diagnostic algorithm and an aid in interpretation, copy and paste this link: https://nrl.testcatalog.org/show/hsTrop Current Interpretive Data last revised 2020. Blood 06/26/2025 8:30 PM CDT 06/26/2025 8:41 PM CDT Alison RICHARDSON LAB BLOOD ORDERABLES Final Resu lt [facility] ([place]) 1 [facility] Department [place] [address] * eGFR (06/26/2025 8:30 PM CDT) eGFR 72 >=60 mL/min/1. 73 m2 Comment: Interpretive Data Reference Interval Normal >/= 90 mL/min/1.73m2 Mildly decreased* 60 - 89 mL/min/1.73m2 Mildly to moderately decreased 45 - 59 mL/min/1.73m2 Moderately to severely decreased 30 - 44 mL/min/1.73m2 Severely decreased 15 - 29 mL/min/1.73m2 Kidney Failure < 15 mL/min/1.73m2 *Relative to young adult level Estimated glomerular filtration rate is determined by the 2020 CKD-EPI equation recommended by the National Kidney Foundation (A Unifying Approach to GFR Estimation: Recommendations of the NKF-ASK Task Force on Reassessing the Inclusion of Race in Diagnosing Kidney Disease, JASN 2020). The CKD-EPI equation should not be used for patients with unstable renal function and has not been validated in children and those over 70. Current interpretive data was last reviewed 2021. Blood 06/26/2025 8:30 PM CDT 06/26/2025 8:41 PM CDT Alison R[facility]ARDSON LAB BLOOD ORDERABLES Final Resu lt R[facility] ([place]) 1 [facility] Department [place] [address] * Differential, auto (06/26/2025 8:30 PM CDT) Neutrophil abs 4.08 1.50 - 6.50 K/cumm Imm gran abs 0.01 0.00 - 0.10 K/cumm [facility] ([facility]) Lymphocyte abs 1.23 0.80 - 3.30 K/cumm [facility] ([facility]) Monocyte abs 0.35 0.20 - 0.80 K/cumm [facility] ([facility]) Eosinophil abs 0.25 0.00 - 0.50 K/cumm [facility] ([facility]) Basophil abs 0.03 0.00 - 0.10 K/cumm [facility] ([facility]) Neutrophil pct 68.5 % [facility] ([facility]) Comment: Interpretive Data Percent cell count reference ranges are not reported, since discordance with absolute values may lead to misinterpretation of CBC data. Current Interpretive Data was last revised on 2017. Imm gran pct 0.2 % [facility] ([facility]) Comment: Interpretive Data Percent cell count reference ranges are not reported, since discordance with absolute values may lead to misinterpretation of CBC data. Current Interpretive Data was last revised on 2017. Lymphocyte pct 20.7 % [facility] ([facility]) Comment: Interpretive Data Percent cell count reference ranges are not reported, since discordance with absolute values may lead to misinterpretation of CBC data. Current Interpretive Data was last revised on 2017. Monocyte pct 5.9 % [facility] ([facility]) Comment: Interpretive Data Percent cell count reference ranges are not reported, since discordance with absolute values may lead to misinterpretation of CBC data. Current Interpretive Data was last revised on 2017. Eosinophil pct 4.2 % [facility] ([facility]) Comment: Interpretive Data Percent cell count reference ranges are not reported, since discordance with absolute values may lead to misinterpretation of CBC data. Current Interpretive Data was last revised on 2017. Basophil pct 0.5 % [facility] ([facility]) Comment: Interpretive Data Percent cell count reference ranges are not reported, since discordance with absolute values may lead to misinterpretation of CBC data. Current Interpretive Data was last revised on 2017. Blood 06/26/2025 8:30 PM CDT 06/26/2025 8:41 PM CDT us Alison [facility]DS[facility] LAB BLOOD ORDERABLES Final Resu lt [facility] ([facility]) 1 [facility] Department [place] [address] * (ABNORMAL) CBC with auto differential (06/26/2025 8:30 PM CDT) WBC 5.95 3.80 - 9.90 K/cumm Hgb 14.4 11.9 - 15.5 g/dL [facility] Hct 40.1 35.6 - 45.5 % [facility] Plt 190 150 - 400 K/cumm [facility] ([facility]) MPV 9.1 9.1 - 12.3 fL [facility] RBC 4.71 3.90 - 5.20 M/cumm [facility] ([facility]) MCV 85.1 81.3 - 96.4 fL [facility]) MCH 30.6 27.1 - 33.3 pg [facility] ([facility]) MCHC 35.9(H) 32.3 - 35.7 g/dL [facility] RDW CV 11.7 11.1 - 14.9 % [facility]) RDW SD 35.8 35.7 - 48.1 fL [facility] NRBC abs 0.00 0.00 - 0.01 K/cumm [facility] Blood Venous blood specimen / Unknown 06/26/2025 8:30 PM CDT 06/26/2025 8:41 PM CDT us Alison [facility]DS[facility] LAB BLOOD ORDERABLES Final Resu lt [facility] ([facility] 1 [facility] Department [place] [address] * (ABNORMAL) Comprehensive metabolic panel (06/26/2025 8:30 PM CDT) Sodium 137 135 - 145 mmol/L Potassium, pl 3.0(C) 3.3 - 4.9 mmol/L [facility] ([facility]) Comment:Critical Result call ed by [email or web address] at 2025-06-26 21:08:56. Result Read Back by grabiel goldstein er Chloride 97 97 - 110 mmol/L [facility]) CO2 26 22 - 32 mmol/L [facility]) Anion gap 14 2 - 15 mmol/L [facility]) BUN 11 6 - 25 mg/dL [facility]) Creatinine 0.86 0.60 - 1.10 mg/dL [facility]) Glucose 150 70 - 199 mg/dL [facility]) Comment: Interpretive Data Fasting glucose >/= 126 mg/dl is diagnostic for diabetes. Fasting is defined as no caloric intake for at least 8 hours. Fasting glucose between 100 mg/dl to 125 mg/dl is diagnostic of prediabetes. In a patient with classic symptoms of hyperglycemia or hyperglycemic crisis, a random glucose >/= 200 mg/dl is diagnostic for diabetes. In the absence of unequivocal hyperglycemia, results should be confirmed by repeat testing. The classification and Diagnosis of Diabetes Diabetes Care 2021; 46: S19-S40. Current interpretive data was last revised 2022. Calcium 10.3 8.5 - 10.3 mg/dL [facility]) Bilirubin, total 0.8 0.1 - 1.2 mg/dL [facility] ([facility]) Protein, pl 7.0 6.5 - 8.5 g/dL [facility]) Albumin 4.5 3.5 - 5.0 g/dL [facility]) Alk phos 80 40 - 130 Units/L [facility]) ALT 13 7 - 45 Units/L [facility]) AST 20 10 - 45 Units/L [facility] ([facility]) Comment:Hemolysis present. R esults may be affected. Blood 06/26/2025 8:30 PM CDT 06/26/2025 8:41 PM CDT Alison R[facility]ARDSON LAB BLOOD ORDERABLES Final Resu lt Performing Organization Address City/[facility]/ZIP Co de Phone Number [facility]ENN[facility] (RIP) 1 [facility] [place] [address] * ECG 12 lead (06/26/2025 8:23 PM CDT) 06/26/2025 8:23 PM CDT Narrative [facility] - 06/28/2025 12:54 AM CDT Vent Rate: 59 bpm RR Interval: 1008 msec [place] Interval: 168 msec QRS Duration: 98 msec QT Interval: 423 msec QTC Interval: 422 msec P-R-T [place]: 52 - 7 - -29 degrees IMPRESSION: SINUS BRADYCARDIA WITH SINUS ARRHYTHMIA LEFT VENTRICULAR HYPERTROPHY AND ST-T CHANGE [VOLTAGE CRITERIA PLUS ST/T ABNORMALITY] ABNORMAL ECG NO CHANGE FROM PREVIOUS TRACING NOTED Electronically Signed By: Lucho Rebollar MD Alison R[facility]ON ECG ORDERABLES Final Result Performing Organization Address [facility] de Phone Number [employer] [facility] * Screening Mammogram Bilateral W Fausto (01/14/2025 4:13 PM CDT) Anatomical Region Laterality Modality Breast Bilateral Mammography Impressions 01/14/2025 4:25 PM CDT There is no mammographic evidence of malignancy. A 1 year screening mammogram is recommended. BI-RADS: 1 - Negative. The patient has been or will be contacted. The patient will be entered into a reminder system with a target due date of 1 year for her next mammogram. Electronically signed by: Magaly Arreola M.D. Narrative 01/14/2025 4:25 PM CDT EXAMINATION: SCREENING MAMMOGRAM BILATERAL W FAUSTO ORDERING HEALTHCARE PROVIDER: SELF SCREENING MAMMOGRAM HISTORY: Routine screening mammography. COMPARISON: 08/24/2022, 01/28/2019, 06/26/2016 TECHNIQUE: CC and MLO views of the bilateral breasts were obtained with digital technique using breast tomosynthesis with C view. Computer aided detection was utilized. FINDINGS: DENSITY: There are scattered fibroglandular elements in the bilateral breasts. BREASTS: There are benign calcifications in both breasts.There are no suspicious masses, suspicious calcifications, or other suspicious findings in either breast. There has been no suspicious interval change. us Self Screening Mammogram IMG MAMMO PROCEDURES Fi nal Result * Dexa Axial Skeleton Bone Density 1 or 2 Site (06/20/2024 11:15 AM CDT) Anatomical Region Laterality Modality Body N/A Other 06/20/2024 8:03 PM CDT Narrative 06/20/2024 8:04 PM CDT EXAM DESCRIPTION: DEXA AXIAL SKELETON BONE DENSITY 1 OR MORE SITES REASON FOR STUDY: 69 y/o year old F with given history of: Postmenopausal Screening Detacker/Model: Perfect Market SL (S/N [id number]) CLINICAL INFORMATION: Current height: 62 inches Maximum [...] Moe Moreau M.D. MF: MIA Report ID: [id number] Reading Location: [place] [address] Procedure Note Moe Moreau MD - 06/20/2024 EXAM DESCRIPTION: DEXA AXIAL SKELETON BONE DENSITY 1 OR MORE SITES REASON FOR STUDY: 69 y/o year old F with given history of:Postmenopausal Screening Detacker/Model: Noom Discovery SL (S/N [id number]) CLINICAL INFORMATION: Current height: 62 inches Maximum [...] 8:04 PM - Electronically signed by Moe oMreau M.D. MF: MIA Report ID: [id number] Reading Location: [place] [address] Franco Prescott MD IMG DXA PROCEDURES Viviana l Result from Last 3 Months or Most Recently Relevant to Health Maintenance Insurance [facility] MEDICARE [facility] MEDICARE [facility] Address: [address] [place] [id number] [facility] WORKERS COMPENSATION GENERIC Member Subscriber Plan / Payer (Ef fective 2018-Present) Name:Antonia Yuanrosalinda Wilburn Member ID:[id number] Relation to Subscriber:Self Name:Kwabena Yoanna A Subscriber ID:xx [id number] Payer ID:[id number] Type:WORKERS COMPENSATION Address: [facility] [address] [place] [address] Care Teams Thermoplastic Technician Relationship Specialty Start Date End Date Franco Prescott MD [address] [place] [address] PCP - General 01/15/18 Alden Cerna MD [address] [facility] [address] Surgeon Orthopedic Surgery 02/19/18 Li Rascon, OT [address] [facility] [place] [address] Occupational Therapist Occupational Therapy 02/26/18 Apryl Cummins, PT Physical Therapist Physical Therapy 03/07/18 Elijah Blake Sawing And Assembly Supervisor Physical Therapy 03/08/18 Martine Groves, SAND ANALYST Sawing And Assembly Supervisor Physical Therapy 03/12/18 Magda Kelley Physician [employer] Officer Orthopedic Surgery 03/27/18 Nicole Lamar COTA Occupational Therapist Occupational Therapy 03/27/18 Rachel Cooney N. [facility] [address] [place] [address] Auditing Coder 02/19/18
== END 2025-07-08 08:52 | disposition home or self-care (01) ==
PROVIDERS: PCP Family Medicine; Visit Provider Physician Assistant
DX: R07.89 Other chest pain (principal); E87.6 Hypokalemia
CPT/HCPCS: 78452; 93017; A9502; J2785

== ENCOUNTER 2025-07-26 03:26 | Inpatient (IN) | payer MEDICARE, OTHER, SELFPAY ==
--- NOTE | ~2025-07-26 | US_ITS ---
ULTRASOUND ABDOMEN LIMITED (RIGHT UPPER QUADRANT) Clinical History: Gallbladder sludge Comparison: CT abdomen pelvis 08/03/2021 Technique: Right upper quadrant sonography Findings: Liver: Normal size. Normal echotexture. Mild intrahepatic biliary ductal dilatation. Normal hepatopedal flow main portal vein. Multiple cysts. Indeterminate hyperechoic focus right lobe. Common Duct: 7 mm. Gallbladder: Stones and sludge. Mild wall thickening. No pericholecystic fluid. Technologist does not mention if sonographic Starks's sign was performed. Pancreas: Unremarkable. Right kidney: Unremarkable. Retrohepatic IVC: Unremarkable. IMPRESSION: 1. Gallstones. No convincing evidence of cholecystitis but recommend Starks's sign on clinical exam. If clinical ambiguity, consider HIDA scan. 2. Indeterminate hyperechoic liver focus. Recommend CT liver protocol. Reviewed, dictated and finalized at location [facility]
[2025-07-26 03:31] VITALS: BMI 22.5
--- NOTE | 2025-07-26 04:09 | ADMGEN ---
This patient, Yoanna Yuan, was admitted to [facility] Surg Room 312-01. Patient/family oriented to hospital policies and general routines including ID bracelet, bed and alarms, visiting hours, pain management, procedures, bathroom and other care routines, personal items, smoking policy, room service/diet, and visiting hours. Information on how to activate the Rapid Response Team has been discussed. Patient/Family are encouraged to report perceived risks to care and to ask questions if they do not understand what they are told or what they should do.
[2025-07-26 04:19] VITALS: BP 119/52; PULSE 55; RESP 17; TEMP 36.3; O2SAT 99
--- NOTE | 2025-07-26 04:30 | P.HP_ITS ---
H&P: HPI History of Present Illness Date/Time: 07/26/25 04:30 Chief Complaint: Abdominal pain Narrative: This is a 70-year-old female patient who has had a history of acid reflux, hypertension, and pancreatitis. The patient came to the emergency room at [facility] with intermittent upper abdominal pain that was worse on the right than the left. The pain started approximately 3 months ago and it has been in termittent. The patient was seen at [facility] ER on 06/26/2025 with this same complaints. The CT scan did not offer any acute findings at the time. She continued to have some discomfort and went to [facility] ER again on 07/23/2025. At that time the ct scan showed gallbladder sludge and some mild wall thickening. She was discharged to home but did not knot picker cloth her medication from the pharmacy. The patient stated that she is supposed to follow-up with a surgeon. The patient went to [facility] ER on 07/25/2025. She started to vomit and have severe pain to the right upper quadrant. UA shows 2+ ketones and trace glucose. Comprehensive metabolic panel was normal and CBC with differential was normal. Her lactic acid was 1.2. Lipase was normal. CT of the abdomen pelvis with contrast was read as probable gallbladder sludge versus tiny gallstones and mild gallbladder wall thickening without significant inflammatory changes. If clinical concerns persist recommend right upper quadrant abdominal ultrasound. [id number] colonic diverticulosis without any evidence of acute diverticulitis. The ER physician did talk to the hospitalist at [facility] who declined admission as there is no surgeon until Sunday. The patient was a direct admit and the surgeon on staff at [facility] agreed to consult if the patient was admitted here at [facility]. The patient is being admitted to observation status on the date of service of 07/26/2025. Review of Systems Constitutional: Constitutional: Reports as per HPI and Reports no additional constitutional complaints Eyes: Eyes: Reports as per HPI and Reports no additional eye complaints ENT: Reports system reviewed and no additional complaints, except as documented and Reports Normal hearing present Cardiovascular: Cardiovascular: Reports no additional cardiovascular complaints Respiratory: Respiratory: Reports as per HPI and Reports no additional respiratory complaints Gastrointestinal: Gastrointestinal: Reports as per HPI and Reports no additional gastrointestinal complaints Genitourinary: Genitourinary: Reports no additional female genitourinary complaints Musculoskeletal: Musculoskeletal: Reports no additional musculoskeletal complaints Integumentary/Breasts: Skin/Breast: Reports system reviewed and no additional complaints, except as docu Neurologic: Reports system reviewed and no additional complaints, except as documented and Reports Normal hearing present Psychiatric: Psychiatric: Reports no additional psychiatric complaints and Reports as per HPI Hematologic/Lymphatic: Hematologic/Lymphatic: Reports no additional hematologic/lymphatic complaints Allergic/Immunologic: Allergic/Immunologic: Reports no additional allergic/immunologic complaints [facility] Past Medical History Medical History Osteoporosis Mild cognitive impairment Diverticulosis Surgical History Surgical History History of bladder suspension procedure Status post unilateral salpingo-oophorectomy Status post hysterectomy Family History Family History Father Family history of Alzheimer's disease Mother Family history of diabetes mellitus in first degree relative Family history of coronary artery disease Social History Social History Social History: She is and lives with her . She has 2 children and she is retired. Code status: Full code Smoking status: Never smoker Second hand tobacco smoke exposure: No Alcohol intake: never Substance use: never Substance use type: does not use Lack of Transportation: No Lack of Food: Never True Current Housing: I Have Housing Concerned About Future Housing: No Difficulty Paying Gas/Electric Bills: No Difficulty Paying for Meds: No Currently Unemployed: No Education: Decline to Answer Difficulty w/ Childcare or Family Care: No Living arrangements: with family Occupation/Education: retired Gender identity (if verbalized by the patient): Female Sexual Orientation (if Verbalized by the Patient): Straight or Heterosexual Spiritual care concerns: No Meds Home Medications and Allergies Home Medications ?Medication ?Instructions ?Recorded ?Confirmed ?Type alendronate 70 mg tablet 70 mg PO WEEKLY #12 tabs 12/1807/26/25 Rx pantoprazole 40 mg tablet,delayed 40 mg PO QAM #90 tab s 10/09/24 07/26/25 Rx release dicyclomine 10 mg capsule See Rx Instructions .Route 0 11/06/24 07/26/25 Rx .COMPLEX #100 caps metoprolol succinate 25 mg See Rx Instructions .Route 11/14/24 07/26/25 Rx tablet,extended release 24 hr .COMPLEX #90 ea atorvastatin 10 mg tablet See Rx Instructions .Route 0 02/13/25 07/26/25 Rx .COMPLEX #90 tabs donepezil 5 mg tablet See Rx Instructions .Route 0 02/13/25 07/26/25 Rx .COMPLEX #90 tabs hydrochlorothiazide 25 mg tablet 12.5 mg (1/2 x 25 mg) PO DAILY #45 05/07/25 07/26/25 Rx Held on 07/26/25. tabs Instructions: .Provider Order baclofen 5 mg tablet 5 mg PO BID PRN muscle spasm #14 06/05/25 07/26/25 Rx tabs hydrocodone 5 mg-acetaminophen 325 1 tablet PO Q8H PRN pain 07/26/25 07/26/25 History mg tablet Allergies Allergy/AdvReac Type Severity Reaction Status Date / Time Penicillins Allergy Unknown RASH Verified 06/29/25 11:12 ???ANTIBIOTIC DURING AU.2007 Allergy Severe RASH--???PENICILLIN Uncoded 06/29/25 11:12 SURGERY BASE Vital Signs Vital Signs - 24 hr 07/26/25 04:18 07/26/25 04:19 Temperature 97.3 F L Pulse Rate 55 L Respiratory Rate 17 Blood Pressure 119/52 L Pulse Oximetry 99 Oxygen Delivery Room Air Exam Const: General: cooperative, healthy appearing, comfortable, no acute distress, well developed, awake, Physically active, average body habitus and well nourished Nutritional Appearance: average body habitus and well nourished Orientation/consciousness: oriented to person, oriented to place, oriented to time and patient oriented x3 HENMT: Head: normal to inspection, No palpable skull fracture present, normocephalic, atraumatic and abrasion Ears: hearing grossly normal bilaterally Face/Nose/Sinus: Normal nares present and No nasal polyps present Eyes: General: appearance normal, both eyes and all related structures Alignment and Position: alignment normal Periorbital: periorbital findings normal Eyelids: eyelids normal Neck: Neck: normal visual inspection, full ROM, no lymphadenopathy, trachea midline and supple Chest: Chest palpation & inspection: normal inspection of the chest Resp: Effort & Inspection: normal respiratory effort Auscultation: clear to auscultation bilaterally Percussion: percussion normal Cardio: Palpation: normal PMI Rate: bradycardic Rhythm: regular rhythm Heart sounds: S1 normal heart sound present and S2 normal heart sound present Peripheral pulses: Peripheral pulses 2+ throughout GI: Inspection: normal to inspection GI Palp: Yes abdominal tenderness Auscultation: normal bowel sounds Rectal Exam: deferred Other: Positive Starks sign : General: Yes no CVA tenderness Back/Spine/Pelvis: Back: no CVA tenderness Cervical Spine: cervical ROM normal Skin: General skin exam: normal color Lesions: no lesions Rashes: no rashes Trauma: no lacerations or abrasions Wounds: no wounds Hair: nor mal Nails: normal Neuro: General: oriented to person, oriented to place, oriented to time and patient oriented x3 Cranial nerves: Yes Equal, round and reactive pupils present and Yes Normal hearing present Cognition (Neuro): normal cognition Speech: normal speech Gait exam (Neuro): Normal gait present Motor exam (neuro): 5/5 motor strength present throughout Sensory Exam: normal sensation Extrem: General: normal to inspection Right upper extremity: normal to inspection and shoulder/upper arm Left upper extremity: normal to inspection and shoulder/upper arm Right lower extremity: normal to inspection Left lower extremity: normal to inspection Psych: Appearance: grossly normal Mental Status: mental status grossly normal Speech and movement: Normal speech and movement present Affect: normal affect Attitude: cooperative Thought process: Normal thought process present Thought content: Yes Normal thought content present Insight: Limited insight present (Psych) Judgement: Limited judgement present (Psych) Other: Forgetful at times H&P: Results Imaging CT scan - abdomen: Radiologist's impression: CT of the abdomen pelvis with contrast was read as probable gallbladder sludge versus tiny gallstones and mild gallbladder wall thickening without significant inflammatory changes. If clinical concerns persist recommend right upper quadrant abdominal ultrasound. [id number] colonic diverticulosis without any significant inflammatory changes. If clinical concerns persist recommend right upper quadrant abdominal ultrasound. [id number] colonic diverticulosis without any evidence of acute diverticulitis. Assessment and Plan Assessment and plan (1) Cholelithiasis: Code(s): K80.20 - Calculus of gallbladder without cholecystitis without obstruction Status: Acute Assessment and Plan: -the patient was made NPO. -CT shows probable gallbladder sludge versus tiny gallstones. -the patient is allergic to penicillin and therefore was started on Levaquin and Flagyl. -HIDA scan and gallbladder ultrasound were ordered. May also consider MRCP. -liver enzymes were not elevated at the outside facility. -continue with pain management -continue with IV fluids. -continue with antiemetics -[facility] surgery team was notified of the patient when she was at [facility]. Surgery agreed to consult on the patient in the event she was admit sam here. -monitor liver enzymes. (2) Essential (primary) hypertension: Code(s): I10 - Essential (primary) hypertension Status: Acute Assessment and Plan: -metoprolol is on hold as he is NPO at this time. May consider the Lopressor. -hydralazine with parameters is been initiated. (3) Gastro-esophageal reflux disease without esophagitis: Code(s): K21.9 - Gastro-esophageal reflux disease without esophagitis Status: Acute Assessment and Plan: -IV pantoprazole was initiated. (4) Pure hypercholesterolemia: Code(s): E78.00 - Pure hypercholesterolemia, unspecified Status: Acute Assessment and Plan: -atorvastatin is on hold as she is NPO. (5) Osteoporosis: Code(s): M81.0 - Age-related osteoporosis without current pathological fracture Status: Acute Assessment and Plan: Fosamax is on hold at this time. Quality VTE Prophylaxis VTE prophylaxis: mechanical ordered
[2025-07-26] MEDS: LACTATED RINGERS 1,000 ML 100 ML IV CONT ×2 (05:34→17:51)
[2025-07-26] MEDS: metroNIDAZOLE 500 MG/ISO 100ML 500 MG/100 ML BAG 100 MG IVPB ×3 (06:24→21:13)
[2025-07-26] MEDS: HYDROmorphone HCL INJ (*CRX) 1 MG/ML SYR 0.5 MG IV PUSH ×4 (06:28→20:12)
[2025-07-26 06:29] LABS: Hematocrit 34.5 % (37.0-47.0); Hemoglobin 12.1 g/dL (12.0-15.0); Immature Platelet Fraction Pct 1.4 % (0.9-11.2); Mean Corpuscular HGB Conc 35.1 g/dl (32-36); Mean Corpuscular Hemoglobin 30.9 pg (26-34); Mean Corpuscular Volume 88.0 fl (80-100); Platelet Count Result 137 k/mm3 (150-375); Red Blood Count 3.92 M/mm3 (4.2-5.4); White Blood Count 5.4 K/mm3 (4.5-10.0)
[2025-07-26 07:09] LABS: Anion Gap 4 mmol/L (4-12); Blood Urea Nitrogen 5 mg/dL (7-17); Calcium 7.9 mg/dL (8.4-10.2); Carbon Dioxide 26 mmol/L (22-30); Chloride 103 mmol/L (98-107); Estimated CRCL calculation 61 ml/min; Estimated Glomerular Filt Rate > 60; Glucose 118 mg/dL (65-110); Potassium 3.3 mmol/L (3.4-5.0); Sodium 133 mmol/L (137-145)
[2025-07-26] MEDS: ONDANSETRON INJ 4 MG/2 ML VIAL IV PUSH (07:19)
--- NOTE | 2025-07-26 07:52 | P.PNIM_ITS ---
Progress Note: A&P Assessment and Plan (1) Cholelithiasis: Code(s): K80.20 - Calculus of gallbladder without cholecystitis without obstruction Status: Acute Assessment and Plan: * CT shows probable gallbladder sludge versus tiny gallstones * NPO * Allergic to penicillin - started on Levaquin and Flagyl * HIDA scan and gallbladder ultrasound were ordered * May also consider MRCP * liver enzymes were not elevated at the outside facility * continue with pain management, IVF, antiemetics * Abdomen ultrasound: Gallstones. No convincing evidence of cholecystitis but recommend Starks's sign on clinical exam. If clinical ambiguity, consider HIDA scan. Indeterminate hyperechoic liver focus. Recommend CT liver protocol. * Surgery consulted * Patient would like to proceed with surgical intervention at this time * Plan for cholecystectomy tomorrow (07/27) * NPO at midnight (2) Essential (primary) hypertension: Code(s): I10 - Essential (primary) hypertension Status: Acute Assessment and Plan: * metoprolol is on hold as she is NPO * hydralazine with parameters is been initiated (3) Gastro-esophageal reflux disease without esophagitis: Code(s): K21.9 - Gastro-esophageal reflux disease without esophagitis Status: Acute Assessment and Plan: * IV pantoprazole initiated (4) Pure hypercholesterolemia: Code(s): E78.00 - Pure hypercholesterolemia, unspecified Status: Acute Assessment and Plan: * atorvastatin is on hold as she is NPO. (5) Osteoporosis: Code(s): M81.0 - Age-related osteoporosis without current pathological fracture Status: Acute Assessment and Plan: * Fosamax is on hold Subjective Date/time seen: 07/26/25 07:52 Interval history: 70-year-old female patient who has had a history of acid reflux, hypertension, and pancreatitis. The patient came to the emergency room at [facility] with intermittent upper abdominal pain that was worse on the right than the left. The pain started approximately 3 months ago and it has been intermittent. 07/26/25 Patient sitting comfortably in bed at time of examination. Denies any chest pain, shortness of breath, nausea/vomiting. Does have some right upper quadrant abdominal discomfort, abdominal exam shows pain on palpation of RUQ. General surgery consulted - plan for cholecystectomy tomorrow. Diet today, NPO at midnight, continue IV antibiotics. Patient otherwise stable at this time, afebrile without leukocytosis. Review of Systems Constitutional: Constitutional: Reports as per HPI and Reports no additional constitutional complaints Eyes: Eyes: Reports as per HPI and Reports no additional eye complaints ENT: Reports system reviewed and no additional complaints, except as docu mented and Reports Normal hearing present Cardiovascular: Cardiovascular: Reports no additional cardiovascular complaints Respiratory: Respiratory: Reports as per HPI and Reports no additional respiratory complaints Gastrointestinal: Gastrointestinal: Reports as per HPI and Reports no additional gastrointestinal complaints Genitourinary: Genitourinary: Reports no additional female genitourinary complaints Musculoskeletal: Musculoskeletal: Reports no additional musculoskeletal complaints Integumentary/Breasts: Skin/Breast: Reports system reviewed and no additional complaints, except as docu Neurologic: Reports system reviewed and no additional complaints, except as documented and Reports Normal hearing present Psychiatric: Psychiatric: Reports no additional psychiatric complaints and Reports as per HPI Hematologic/Lymphatic: Hematologic/Lymphatic: Reports no additional hematologic/lymphatic complaints Allergic/Immunologic: Allergic/Immunologic: Reports no additional allergic/immunologic complaints Exam Const: General: cooperative, healthy appearing, comfortable, no acute distress, well developed, awake, Physically active, average body habitus and well nourished Nutritional Appearance: average body habitus and well nourished Orientation/consciousness: oriented to person, oriented to place, oriented to time and patient oriented x3 HENMT: Head: normal to inspection, No palpable skull fracture present, normocephalic, atraumatic and abrasion Ears: hearing grossly normal bilaterally Face/Nose/Sinus: Normal nares present and No nasal polyps present Eyes: General: appearance normal, both eyes and all related structures Alignment and Position: alignment normal Periorbital: periorbital findings normal Eyelids: eyelids normal Pupils: Equal, round and reactive pupils present Neck: Neck: normal visual inspection, full ROM, no lymphadenopathy, trachea midline and supple Chest: Chest palpation & inspection: normal inspection of the chest Resp: Effort & Inspection: normal respiratory effort Auscultation: clear to auscultation bilaterally Percussion: percussion normal Cardio: Palpation: normal PMI Rate: bradycardic Rhythm: regular rhythm Heart sounds: S1 normal heart sound present and S2 normal heart sound present Peripheral pulses: Peripheral pulses 2+ throughout GI: Inspection: normal to inspection Auscultation: normal bowel sounds Rectal Exam: deferred Other: Positive Starks sign : General: Yes no CVA tenderness Back/Spine/Pelvis: Back: no CVA tenderness Cervical Spine: cervical ROM normal Thoracic/Lumbar Spine: thoracic and lumbar spine normal to inspection Pelvis: no pain with anterior-posterior compression Skin: General skin exam: normal color Lesions: no lesions Rashes: no rashes Trauma: no lacerations or abrasions Wounds: no wounds Hair: normal Nails: normal Neuro: General: oriented to person, oriented to place, oriented to time and patient oriented x3 Cranial nerves: Yes Equal, round and reactive pupils present and Yes Normal hearing present Cognition (Neuro): normal cognition Speech: normal speech Gait exam (Neuro): Normal gait present Motor exam (neuro): 5/5 motor strength present throughout Sensory Exam: normal sensation Extrem: General: normal to inspection Right upper extremity: normal to inspection and shoulder/upper arm Left upper extremity: normal to inspection and shoulder/upper arm Right lower extremity: normal to inspection Left lower extremity: normal to inspection Psych: Appearance: grossly normal Mental Status: mental status grossly normal Speech and movement: Normal speech and movement present Affect: normal affect Attitude: cooperative Thought process: Normal thought process present Insight: Good insight present (Psych) and Limited insight present (Psych) Judgement: Good judgement present (Psych) and Limited judgement present (Psych) Other: Forgetful at times Objective Data Vital Signs Vital Signs: Vital Signs - 24 hr 07/26/25 04:18 07/26/25 04:19 Temperature 97.3 F L Pulse Rate 55 L Respiratory Rate 17 Blood Pressure 119/52 L Pulse Oximetry 99 Oxygen Delivery Room Air Intake/Output Intake/Output: Intake & Output 07/23/25 07/24/25 07/25/25 07/26/25 23:59 23:59 23:59 23:59 Intake Total 0 Output Total 25 Balance -25 Meds/Results Medications: Active Medications Generic Name Dose Route Start Last Admin Trade Name Freq PRN Reason Stop Dose Admin Hydralazine HCl 10 mg 07/26/25 05:47 Hydralazine Hcl 20 Mg/Ml Vial IV PUSH Q8H PRN Blood Pressure - High Hydromorphone HCl 0.5 mg 07/26/25 05:24 07/26/25 06:28 Hydromorphone Hcl Inj (*Crx) 1 Mg/Ml Syr IV PUSH 0.5 mg Q3H PRN Administration Pain Rated 7-10 Lactated Ringer's 1,000 mls @ 100 mls/hr 07/26/25 04:30 07/26/25 05:34 Lr - Lactated Ringers Iv IV CONT 100 mls/hr .Q10H RYLEE Administration Metronidazole 500 mg in 100 mls @ 100 mls/hr 07/26/25 06:00 07/26/25 06:24 Flagyl 500 Mg/Iso Soln 100 Ml IVPB 100 mls/hr Q8H RYLEE Administration Levofloxacin/Dextrose 750 mg in 150 mls @ 100 mls/hr 07/27/25 01:00 Levaquin 750 Mg/D5w 150 Ml IVPB Q24H RYLEE Morphine Sulfate 2 mg 07/26/25 04:30 Morphine Sulfate (*Crx) 4 Mg/Ml Inj IV PUSH Q4H PRN Pain Rated 7-10 Ondansetron HCl 4 mg 07/26/25 05:23 07/26/25 07:19 Ondansetron Inj 4 Mg/2 Ml Vial IV PUSH 4 mg Q4H PRN Administration Nausea And Vomiting Pantoprazole Sodium 40 mg 07/26/25 09:00 Pantoprazole Sodium Iv 40 Mg Vial IV PUSH Q12HR [facility] Labs Labs: Laboratory Results - last 24 hr 07/26/25 06:01 WBC 5.4 RBC 3.92 L Hgb 12.1 D Hct 34.5 L MCV 88.0 MCH 30.9 MCHC 35.1 RDW 11.9 Plt Count 137 L MPV 9.0 % Immature Plt Fraction 1.4 Sodium 133 L Potassium 3.3 L Chloride 103 Carbon Dioxide 26 Anion Gap 4 BUN 5 L D Creatinine 0.57 L Estim Creat Clear Calc 61 Estimated GFR > 60 Glucose 118 H Lactic Acid 0.7 Calcium 7.9 L Quality VTE Prophylaxis VTE prophylaxis: mechanical ordered
[2025-07-26 08:00] VITALS: BP 104/69; PULSE 63; RESP 16; TEMP 36.7; O2SAT 100
[2025-07-26] MEDS: PANTOPRAZOLE SODIUM IV 40 MG VIAL IV PUSH ×2 (09:35→20:12)
[2025-07-26] MEDS: POTASSIUM CHLORIDE 20 MEQ ER TABLET PO (09:42)
--- NOTE | 2025-07-26 10:13 | PM.CNGS ---
Assessment and Plan Assessment and plan (1) Cholecystitis, acute with cholelithiasis: Code(s): K80.00 - Calculus of gallbladder with acute cholecystitis without obstruction Status: Acute Assessment and Plan: long discussion with patient regarding surgical intervention, the patient would like to proceed, she will be placed on the schedule tomorrow for cholecystectomy, okay to have diet today and NPO after midnight, continue antibiotics History of Present Illness Consult details Consult date: 07/26/25 Reason for consult: abdominal pain Requesting physician: Pollo Kimbrough MD Narrative: The patient is a 70-year-old female presenting to the hospital complaining of intermittent episodes of severe right upper quadrant abdominal pain. The patient reports these episodes have been present for the last 3 months and have been increasing in severity and length. She has had extensive workup and multiple emergency room visits at an outside hospital. All her findings are suggestive of acute on chronic cholecystitis, cholelithiasis. The patient was scheduled to see a surgeon as an outpatient but continues to have severe episodes requiring emergency room visits. Review of Systems Review of Systems: All systems reviewed & are unremarkable except as noted in HPI and below PMFSH Past Medical History Medical History Osteoporosis Mild cognitive impairment Diverticulosis Surgical History Surgical History History of bladder suspension procedure Status post unilateral salpingo-oophorectomy Status post hysterectomy Family History Family History Father Family history of Alzheimer's disease Mother Family history of diabetes mellitus in first degree relative Family history of coronary artery disease Social History Social History Social History: She is and lives with her . She has 2 children and she is retired. Code status: Full code Smoking status: Never smoker Second hand tobacco smoke exposure: No Alcohol intake: never Substance use: never Substance use type: does not use Lack of Transportation: No Lack of Food: Never True Current Housing: I Have Housing Concerned About Future Housing: No Difficulty Paying Gas/Electric Bills: No Difficulty Paying for Meds: No Currently Unemployed: No Education: Decline to Answer Difficulty w/ Childcare or Family Care: No Living arrangements: with family Occupation/Education: retired Gender identity (if verbalized by the patient): Female Sexual Orientation (if Verbalized by the Patient): Straight or Heterosexual Spiritual care concerns: No Meds Home Medications and Allergies Home Medications ?Medication ?Instructions ?Recorded ?Confirmed ?Type alendronate 70 mg tablet 70 mg PO WEEKLY #12 tabs 06/30/24 07/26/25 Rx pantoprazole 40 mg tablet,delayed 40 mg PO QAM #90 tabs 10/09/24 07/26/25 Rx release dicyclomine 10 mg capsule See Rx Instructions .Route 11/06/24 07/26/25 Rx .COMPLEX #100 caps metoprolol succinate 25 mg See Rx Instructions .Route 11/14/24 07/26/25 Rx tablet,extended release 24 hr .COMPLEX #90 ea atorvastatin 10 mg tablet See Rx Instructions .Route 02/13/25 07/26/25 Rx .COMPLEX #90 tabs donepezil 5 mg tablet See Rx Instructions .Route 02/13/25 07/26/25 Rx .COMPLEX #90 tabs hydrochlorothiazide 25 mg tablet 12.5 mg (1/2 x 25 mg) PO DAILY #45 05/07/25 07/26/25 Rx Held on 07/26/25. tabs Instructions: .Provider Order baclofen 5 mg tablet 5 mg PO BID PRN muscle spasm #14 06/05/25 07/26/25 Rx tabs hydrocodone 5 mg-acetaminophen 325 1 tablet PO Q8H PRN pain 07/26/25 07/26/25 History mg tablet Allergies Allergy/AdvReac Type Severity Reaction Status Date / Time Penicillins Allergy Unknown RASH Verified 06/29/25 11:12 ???ANTIBIOTIC DURING AU.2007 Allergy Severe RASH--???PENICILLIN Uncoded 06/29/25 11:12 SURGERY BASE Vital Signs Vital Signs - 24 hr 07/26/25 04:18 07/26/25 04:19 07/26/25 08:00 Temperature 36.3 C L 36.7 C Pulse Rate 55 L 63 Respiratory Rate 17 16 Blood Pressure 119/52 L 104/69 Pulse Oximetry 99 100 Oxygen Delivery Room Air Exam Const: General: cooperative, comfortable and no acute distress HENMT: Head: normal to inspection, normocephalic and atraumatic Eyes: General: appearance normal, both eyes and all related structures Neck: Neck: normal visual inspection, full ROM and no lymphadenopathy Resp: Auscultation: clear to auscultation bilaterally Cardio: Rate: regular rate Rhythm: regular rhythm GI: Inspection: normal to inspection and distended GI Palp: Yes abdominal tenderness, Yes Soft to palpation, Yes Tenderness to palpation present (GI), No Guarding due to palpation present (GI) and No Rigid due to palpation Skin: General skin exam: normal color and no rashes or lesions noted Neuro: General: patient oriented x3 and CN's II-XI intact bilaterally Extrem: General: normal to inspection and full ROM Results Labs 07/26/25 06:01 07/26/25 06:01 Labs: Abnormal lab results 07/26/25 Range/Units 06:01 RBC 3.92 L (4.2-5.4) M/mm3 Hct 34.5 L (37.0-47.0) % Plt Count 137 L (150-375) k/mm3 Sodium 133 L (137-145) mmol/L Potassium 3.3 L (3.4-5.0) mmol/L BUN 5 L D (7-17) mg/dL Creatinine 0.57 L (0.7-1.0) mg/dL Glucose 118 H (65-110) mg/dL Calcium 7.9 L (8.4-10.2) mg/dL Diabetes panel 07/26/25 Range/Units 06:01 Sodium 133 L (137-145) mmol/L Potassium 3.3 L (3.4-5.0) mmol/L Chloride 103 (98-107) mmol/L Carbon Dioxide 26 (22-30) mmol/L BUN 5 L D (7-17) mg/dL Creatinine 0.57 L (0.7-1.0) mg/dL Glucose 118 H (65-110) mg/dL Calcium 7.9 L (8.4-10.2) mg/dL Calcium panel 07/26/25 Range/Units 06:01 Calcium 7.9 L (8.4-10.2) mg/dL Pituitary panel 07/26/25 Range/Units 06:01 Sodium 133 L (137-145) mmol/L Potassium 3.3 L (3.4-5.0) mmol/L Chloride 103 (98-107) mmol/L Carbon Dioxide 26 (22-30) mmol/L BUN 5 L D (7-17) mg/dL Creatinine 0.57 L (0.7-1.0) mg/dL Glucose 118 H (65-110) mg/dL Calcium 7.9 L (8.4-10.2) mg/dL Adrenal panel 07/26/25 Range/Units 06:01 Sodium 133 L (137-145) mmol/L Potassium 3.3 L (3.4-5.0) mmol/L Chloride 103 (98-107) mmol/L Carbon Dioxide 26 (22-30) mmol/L BUN 5 L D (7-17) mg/dL Creatinine 0.57 L (0.7-1.0) mg/dL Glucose 118 H (65-110) mg/dL Calcium 7.9 L (8.4-10.2) mg/dL All other labs normal.
[2025-07-26 12:00] VITALS: BP 100/63; PULSE 69; RESP 16; TEMP 36.9; O2SAT 100
[2025-07-26 16:00] VITALS: BP 103/67; PULSE 72; RESP 16; TEMP 36.9; O2SAT 100
[2025-07-26 20:00] VITALS: BP 115/65; PULSE 73; RESP 18; TEMP 36.9; O2SAT 97
[2025-07-26 23:31] VITALS: BP 115/68; PULSE 69; RESP 16; TEMP 36.9; O2SAT 97
[2025-07-27] VITALS (12 sets, daily range): BP systolic 116–139; BP diastolic 53–70; PULSE 66–87; RESP 16–24; TEMP 35.9–37.1; O2SAT 93–100
[2025-07-27] MEDS: levoFLOXacin 750 MG/D5W 150 ML 750 MG/150 ML BAG 100 MG IVPB (00:22)
[2025-07-27] MEDS: HYDROmorphone HCL INJ (*CRX) 1 MG/ML SYR 0.5 MG IV PUSH ×3 (02:03→19:05)
[2025-07-27] MEDS: LACTATED RINGERS 1,000 ML 100 ML IV CONT ×2 (02:04→11:48)
[2025-07-27 05:01] LABS: Hematocrit 31.7 % (37.0-47.0); Hemoglobin 11.1 g/dL (12.0-15.0); Mean Corpuscular HGB Conc 35.0 g/dl (32-36); Mean Corpuscular Hemoglobin 31.0 pg (26-34); Mean Corpuscular Volume 88.5 fl (80-100); Platelet Count Result 114 k/mm3 (150-375); Red Blood Count 3.58 M/mm3 (4.2-5.4); White Blood Count 4.1 K/mm3 (4.5-10.0)
[2025-07-27] MEDS: metroNIDAZOLE 500 MG/ISO 100ML 500 MG/100 ML BAG 100 MG IVPB ×2 (05:26→15:16)
[2025-07-27 05:35] LABS: Anion Gap 1 mmol/L (4-12); Blood Urea Nitrogen 4 mg/dL (7-17); Calcium 7.9 mg/dL (8.4-10.2); Carbon Dioxide 28 mmol/L (22-30); Chloride 103 mmol/L (98-107); Estimated CRCL calculation 62 ml/min; Estimated Glomerular Filt Rate > 60; Glucose 103 mg/dL (65-110); Magnesium 1.8 mg/dL (1.6-2.3); Potassium 3.3 mmol/L (3.4-5.0); Sodium 132 mmol/L (137-145)
--- NOTE | 2025-07-27 07:45 | P.PNIM_ITS ---
Progress Note: A&P Assessment and Plan (1) Cholelithiasis: Code(s): K80.20 - Calculus of gallbladder without cholecystitis without obstruction Status: Acute Assessment and Plan: * CT shows probable gallbladder sludge versus tiny gallstones * Allergic to penicillin - started on Levaquin and Flagyl * HIDA scan and gallbladder ultrasound were ordered * May also consider MRCP * liver enzymes were not elevated at the outside facility * continue with pain management, IVF, antiemetics * Abdomen ultrasound: Gallstones. No convincing evidence of cholecystitis but recommend Starks's sign on clinical exam. If clinical ambiguity, consider HIDA scan. Indeterminate hyperechoic liver focus. Recommend CT liver protocol. * Surgery consulted * Patient would like to proceed with surgical intervention at this time * Plan for cholecystectomy today @ 1415 * NPO (2) Essential (primary) hypertension: Code(s): I10 - Essential (primary) hypertension Status: Acute Assessment and Plan: * metoprolol is on hold as she is NPO * hydralazine with parameters is been initiated (3) Gastro-esophageal reflux disease without esophagitis: Code(s): K21.9 - Gastro-esophageal reflux disease without esophagitis Status: Acute Assessment and Plan: * IV pantoprazole initiated (4) Pure hypercholesterolemia: Code(s): E78.00 - Pure hypercholesterolemia, unspecified Status: Acute Assessment and Plan: * atorvastatin is on hold as she is NPO. (5) Osteoporosis: Code(s): M81.0 - Age-related osteoporosis without current pathological fracture Status: Acute Assessment and Plan: Fosamax is on hold at this time. Subjective Date/time seen: 07/27/25 07:45 Interval history: 70-year-old female patient who has had a history of acid reflux, hypertension, and pancreatitis. The patient came to the emergency room at [facility] [place] with intermittent upper abdominal pain that was worse on the right than the left. The pain started approximately 3 months ago and it has been intermittent. 07/27/25 Patient sitting comfortably in bed at time of examination. She denies any chest pain, shortness of breath, nausea/vomiting, but still endorsing some abdominal discomfort in the RUQ. Plan for cholecystectomy today @ 1415. Vitals remain stable, no leukocytosis. Keep NPO until surgery. Review of Systems Constitutional: Constitutional: Reports as per HPI and Reports no additional constitutional complaints Eyes: Eyes: Reports as per HPI and Reports no additional eye complaints ENT: Reports system reviewed and no additional complaints, except as documented and Reports Normal hearing present Cardiovascular: Cardiovascular: Reports no additional cardiovascular complaints Respiratory: Respiratory: Reports as per HPI and Reports no additional respiratory complaints Gastrointestinal: Gastrointestinal: Reports as per HPI and Reports no additional gastrointestinal complaints Genitourinary: Genitourinary: Reports no additional female genitourinary complaints Musculoskeletal: Musculoskeletal: Reports no additional musculoskeletal complaints Integumentary/Breasts: Skin/Breast: Reports system reviewed and no additional complaints, except as docu Neurologic: Reports system reviewed and no additional complaints, except as documented and Reports Normal hearing present Psychiatric: Psychiatric: Reports no additional psychiatric complaints and Reports as per HPI Hematologic/Lymphatic: Hematologic/Lymphatic: Reports no additional hematologic/lymphatic complaints Allergic/Immunologic: Allergic/Immunologic: Reports no additional allergic/immunologic complaints Exam Narrative: Gen - well appearing female in no acute respiratory distress who is nontoxic- appearing lying semi recumbent in bed HEENT - normocephalic. Pupils equal round and reactive. Extraocular motions intact. Sclera clear and anicteric. Nares patent. Moist mucous membranes. No facial asymmetry. Neck - neck was supple. No dominant adenopathy, thyromegaly or masses. Chest - lungs are clear to auscultation bilaterally. No wheezes or crackles. CV - heart was regular rate and rhythm. S1-S2. No murmurs gallops or rubs. Abd - Abdominal tenderness, abdomen was soft. Nondistended. Positive bowel sounds. Ext - no clubbing, cyanosis or edema. 2+ DP pulses bilaterally. Neuro - patient is alert and oriented x4. Strength is 5/5 in both upper and lower extremities. Cranial nerves 2-12 are intact. Speech is clear. Psych - normal mood and affect. Patient is pleasant and cooperative. Skin - warm and dry. No rashes noted. Objective Data Vital Signs Vital Signs: Vital Signs - 24 hr 07/26/25 08:00 07/26/25 12:00 07/26/25 16:00 Temperature 98.1 F 98.4 F 98.4 F Pulse Rate 63 69 72 Respiratory Rate 16 16 16 Blood Pressure 104/69 100/63 103/67 Pulse Oximetry 100 100 100 07/26/25 20:00 07/26/25 23:31 07/27/25 04:00 Temperature 98.4 F 98.4 F 98.2 F Pulse Rate 73 69 77 Respiratory Rate 18 16 20 Blood Pressure 115/65 115/68 117/59 L Pulse Oximetry 97 97 96 Intake/Output Intake/Output: Intake & Output 07/24/25 07/25/25 07/26/25 07/27/25 23:59 23:59 23:59 23:59 Intake Total 1780 821.7 Output Total 25 Balance 1755 821.7 Meds/Results Medications: Active Medications Generic Name Dose Route Start Last Admin Trade Name Freq PRN Reason Stop Dose Admin Hydralazine HCl 10 mg 07/26/25 05:47 Hydralazine Hcl 20 Mg/Ml Vial IV PUSH Q8H PRN Blood Pressure - High Hydromorphone HCl 0.5 mg 07/26/25 05:24 07/27/25 02:03 Hydromorphone Hcl Inj (*Crx) 1 Mg/Ml Syr IV PUSH 0.5 mg Q3H PRN Administration Pain Rated 7-10 Lactated Ringer's 1,000 mls @ 100 mls/hr 07/26/25 04:30 07/27/25 02:04 Lr - Lactated Ringers Iv IV CONT 100 mls/hr .Q10H RYLEE Administration Metronidazole 500 mg in 100 mls @ 100 mls/hr 07/26/25 06:00 07/27/25 05:26 Flagyl 500 Mg/Iso Soln 100 Ml IVPB 100 mls/hr Q8H RYLEE Administration Levofloxacin/Dextrose 750 mg in 150 mls @ 100 mls/hr 07/27/25 01:00 07/27/25 00:22 Levaquin 750 Mg/D5w 150 Ml IVPB 100 mls/hr Q24H RYLEE Administration Morphine Sulfate 2 mg 07/26/25 04:30 Morphine Sulfate (*Crx) 4 Mg/Ml Inj IV PUSH Q4H PRN Pain Rated 7-10 Ondansetron HCl 4 mg 07/26/25 05:23 07/26/25 07:19 Ondansetron Inj 4 Mg/2 Ml Vial IV PUSH 4 mg Q4H PRN Administration Nausea And Vomiting Pantoprazole Sodium 40 mg 07/26/25 09:00 07/26/25 20:12 Pantoprazole Sodium Iv 40 Mg Vial IV PUSH 40 mg Q12HR RYLEE Administration Radiology Results: ITS Impressions Abdomen Ultrasound 07/26/25 10:15 IMPRESSION: 1. Gallstones. No convincing evidence of cholecystitis but recommend Starks's sign on clinical exam. If clinical ambiguity, consider HIDA scan. 2. Indeterminate hyperechoic liver focus. Recommend CT liver protocol. Labs Labs: Laboratory Results - last 24 hr 07/26/25 07/27/25 11:42 04:47 WBC 4.1 L RBC 3.58 L Hgb 11.1 L Hct 31.7 L MCV 88.5 MCH 31.0 MCHC 35.0 RDW 11.7 Plt Count 114 L MPV 8.9 Sodium 132 L Potassium 3.3 L Chloride 103 Carbon Dioxide 28 Anion Gap 1 L BUN 4 L Creatinine 0.56 L Estim Creat Clear Calc 62 Estimated GFR > 60 Glucose 103 POC Capillary Glucose 114 H Lactic Acid 0.6 L Calcium 7.9 L Magnesium 1.8 Quality VTE Prophylaxis VTE prophylaxis: mechanical ordered
[2025-07-27] MEDS: PANTOPRAZOLE SODIUM IV 40 MG VIAL IV PUSH ×2 (09:01→20:09)
--- NOTE | 2025-07-27 10:14 | WPDHPUPDATE1 ---
History and Physical Update Update Date/Time: 07/27/25 10:14 History and Physical has been reviewed, including an updated exam of the patient. There are NO changes in the patient's condition. Risks, benefits, and alternatives have been discussed and questions answered. Patient agrees to proceed with procedure.
[2025-07-27] MEDS: LACTATED RINGERS 1,000 ML 30 ML IV CONT (13:45)
--- NOTE | 2025-07-27 14:51 | P.PNAN_ITS ---
Anes - Initial Pre Proc Eval Procedure: Operation Date: 07/27/25 14:15 Proposed Procedures p Laparoscopic Cholecystectomy - Teagan Purvis MD Date/Time: 07/27/25 14:51 Surgeon: Pollo Kimbrough MD Pre Op Diagnosis: Cholecystitis Patient Data Age: 70 Gender: F Height: 1.57 m Weight: 55.8 kg Last Vital Signs Temp 36.7 C 07/27/25 13:30 Pulse 78 07/27/25 13:30 Resp 18 07/27/25 13:30 BP 139/58 L 07/27/25 13:30 Pulse Ox 100 07/27/25 13:30 O2 Del Method Room Air 07/27/25 13:30 Allergies Allergy/AdvReac Type Severity Reaction Status Date / Time Penicillins Allergy Unknown RASH Verified 07/27/25 14:00 ???ANTIBIOTIC DURING .2007 Allergy Severe RASH--???PENICILLIN Uncoded 06/29/25 11:12 SURGERY BASE Home Medications ?Medication ?Instructions ?Recorded ?Confirmed ?Type alendronate 70 mg tablet 70 mg PO WEEKLY #12 tabs 12/1807/26/25 Rx pantoprazole 40 mg tablet,delayed 40 mg PO QAM #90 tab s 10/09/24 07/26/25 Rx release dicyclomine 10 mg capsule See Rx Instructions .Route 0 11/06/24 07/26/25 Rx .COMPLEX #100 caps metoprolol succinate 25 mg See Rx Instructions .Route 11/14/24 07/26/25 Rx tablet,extended release 24 hr .COMPLEX #90 ea atorvastatin 10 mg tablet See Rx Instructions .Route 0 02/13/25 07/26/25 Rx .COMPLEX #90 tabs donepezil 5 mg tablet See Rx Instructions .Route 0 02/13/25 07/26/25 Rx .COMPLEX #90 tabs hydrochlorothiazide 25 mg tablet 12.5 mg (1/2 x 25 mg) PO DAILY #45 05/07/25 07/26/25 Rx Held on 07/26/25. tabs Instructions: .Provider Order baclofen 5 mg tablet 5 mg PO BID PRN muscle spasm #14 06/05/25 07/26/25 Rx tabs hydrocodone 5 mg-acetaminophen 325 1 tablet PO Q8H PRN pain 07/26/25 07/26/25 History mg tablet Laboratory Tests 07/27/25 04:47 WBC 4.1 L K/mm3 (4.5-10.0) RBC 3.58 L M/mm3 (4.2-5.4) Hgb 11.1 L g/dL (12.0-15.0) Hct 31.7 L % (37.0-47.0) MCV 88.5 fl (80-100) MCH 31.0 pg (26-34) MCHC 35.0 g/dl (32-36) RDW 11.7 % (11.5-14.5) Plt Count 114 L k/mm3 (150-375) MPV 8.9 fl (7.4-10.4) Sodium 132 L mmol/L (137-145) Potassium 3.3 L mmol/L (3.4-5.0) Chloride 103 mmol/L (98-107) Carbon Dioxide 28 mmol/L (22-30) Anion Gap 1 L mmol/L (4-12) BUN 4 L mg/dL (7-17) Creatinine 0.56 L mg/dL (0.7-1.0) Estim Creat Clear Calc 62 ml/min Estimated GFR > 60 (59 - ) Glucose 103 mg/dL (65-110) Lactic Acid 0.6 L mmol/L (0.7-2.0) Calcium 7.9 L mg/dL (8.4-10.2) Magnesium 1.8 mg/dL (1.6-2.3) Patient hx anesthesia problems: none Family hx anesthesia problems: none Results Review: All pre-operative results and documents have been reviewed as part of the pre- operative evaluation. [facility] Past Medical History Medical History (Updated 07/27/25 @ 14:16 by Arben Mayer DO) Pure hypercholesterolemia Essential (primary) hypertension Osteoporosis Mild cognitive impairment Diverticulosis Surgical History Surgical History History of bladder suspension procedure Status post unilateral salpingo-oophorectomy Status post hysterectomy Family History Family History Father Family history of Alzheimer's disease Mother Family history of diabetes mellitus in first degree relative Family history of coronary artery disease Social History Social History Social History: She is and lives with her . She has 2 children and she is retired. Code status: Full code Smoking status: Never smoker Second hand tobacco smoke exposure: No Alcohol intake: never Substance use: never Substance use type: does not use Lack of Transportation: No Lack of Food: Never True Current Housing: I Have Housing Concerned About Future Housing: No Difficulty Paying Gas/Electric Bills: No Difficulty Paying for Meds: No Currently Unemployed: No Education: Decline to Answer Difficulty w/ Childcare or Family Care: No Living arrangements: with family Occupation/Education: retired Gender identity (if verbalized by the patient): Female Sexual Orientation (if Verbalized by the Patient): Straight or Heterosexual Spiritual care concerns: No Anes - Eval Final PreProcedure Day of Procedure 07/27/25 14:51 Patient weight: normal Heart: regular rate and rhythm Lungs: clear to auscultation Airway: Mallampati scale class II Neurological: alert and oriented Last oral intake: >/= 8 hours ASA classification: III Emergent: no Anesthetic plan: proceed Anesthesia type and monitoring: general ETT and standard monitoring Results Review: All pre-operative results and documents have been reviewed as part of the pre- operative evaluation. Informed Consent: The patient's anesthetic plan and its attendant risks and benefits were discussed with the patient/family/POA. Questions were solicited and answers provided to the satisfaction of the patient/family/POA.
[2025-07-27] MEDS: BUPIVACAINE/EPINEPHRINE 0.5% 50 ML VIAL 30 ML INFILTRATE (15:37)
--- NOTE | 2025-07-27 15:37 | S_PTH ---
PATIENT: Yoanna Yuan LOC: [id number] U#:[id number] AGE/SX: 70/F ROOM: 312 RE07/27/[address]: DEBRA Saavedra : 1955 BED: 01 DIS: 07/28/2025 SPEC #: [id number] RECD: 07/28/25 08:23 STATUS: VENKAT REDarryn #: [id number] COCO: 07/27/25 15:[address]: Teagan Purvis DEPT: [facility] Surgical RECD BY: Rudy Perdomo ENTERED: 07/28/25 08:23 SP TYPE: Surgical OTHR DR: MD Ervin Lindsey PA-C Aftab A. Khan, MD Natalie J. Ross, PA Tissues: A - Gallbladder Procedures: Hematoxylin and Eosin Stain Gross and Microscopic Level 3
--- NOTE | 2025-07-27 16:11 | P.OP_ITS ---
Procedure Note - Detailed Date of Procedure 07/27/25 Pre-op Diagnosis Acute cholecystitis Post-op Diagnosis Same Procedure Performed laparoscopic cholecystectomy Surgeon Teagan Purvis MD Anesthesia General and Local Indications 70-year-old female presenting to the hospital with acute cholecystitis Findings acute cholecystitis with pericholecystic fluid, gallbladder wall thickening, distention Description of Procedure The patient was taken to the operating room placed in the supine position. After adequate induction of general anesthesia, the patient was prepped and draped in normal sterile fashion. A time-out was then performed to verify the patient's identity as well as the procedure being performed. I then made a 5 mm incision in the infraumbilical region. Through this, a Veress needle was placed into the peritoneal cavity and CO2 gas was then insufflated. After adequate pneumoperitoneum was achieved, the Veress needle was removed and a 5 mm optiview trocar was placed through this incision under direct visualization. I then placed the laparoscope through this trocar site and under direct visualization placed a further 12 mm subxiphoid port as well as 2 additional 5 mm ports in the right upper abdomen. The gallbladder was then identified and was noted to be severely inflamed, distended. Given the amount of inflammation and distention, the gallbladder was decompressed with an ovarian needle. A moderate amount of thick sludge was noted. Once decompressed, I was able to place a grasper at the dome of the gallbladder and this was retracted anterior and cephalad up over the liver. A 2nd retractor was then placed at the infundibulum and retracted laterally, this allowed visualization of the triangle of Calot. I then was able to visualize the cystic duct in its entirety from its proximal insertion into the gallbladder, to its distal junction with the common hepatic/common bile duct junction. Of note, the gallbladder was fairly friable even with gentle retraction. At this point, I carefully skeletonized the proximal cystic duct with the [place] dissector. I then clipped and transected the proximal cystic duct. Next I visualized the cystic artery. Again the art mary was skeletonized, clipped, and transected. I then used the Bovie cautery to take down the peritoneal attachments of the gallbladder off the liver bed. This was difficult given the amount of inflammation in the posterior space. Once the gallbladder specimen was completely detached, an endo-pouch was placed through the 12 mm port site. I then placed the gallbladder specimen into the Endo pouch and removed the endo-pouch from the 12 mm port site. The specimen will now be sent to pathology for further review. I then copiously irrigated the right upper quadrant. Some mild oozing was noted in the liver bed and this was controlled with the bovie cautery. I then placed some hemostatic powder in the liver bed. Hemostasis was noted in the liver bed, the clips were noted to be in good position on both the cystic duct stump and the cystic artery stump. No other pathology was noted in the right upper quadrant. I then moved the laparoscope to the subxiphoid port. No iatrogenic injury or other pathology was noted in the lower abdomen. I then closed the 12 mm trocar site under direct visualization using the Guillaume cone and 0 Vicryl suture. At this point, the abdomen was desufflated and all ports removed. All port sites were then closed with 4.O Monocryl subcuticular sutures. Dermabond was placed on each incision. The patient tolerated the procedure well, was extubated in the operating room postoperative and will be transferred to the recovery room in stable condition Estimated Blood Loss 20 Urine Output 0 Drains No Packing No Pathology Yes Complications No immediate complications Condition Stable Disposition PACU [facility] Billing Surgery - Charge Forward: Surgery Billing
[2025-07-27] MEDS: fentaNYL CITRATE INJ (*CRX) 100 MCG/2 ML VIAL 25 MCG IV PUSH ×4 (17:18→17:31)
[2025-07-27] MEDS: ONDANSETRON INJ 4 MG/2 ML VIAL IV PUSH (17:32)
[2025-07-27] MEDS: HYDROcodone/acetaminophen (*CRX) 5-325 MG TABLET 1 TAB PO (23:12)
[2025-07-28] VITALS: BP 123/65; PULSE 86; RESP 16; TEMP 36.7; O2SAT 94
[2025-07-28 04:00] VITALS: BP 125/61; PULSE 78; RESP 16; TEMP 36.6; O2SAT 98
[2025-07-28 05:27] LABS: Hematocrit 34.6 % (37.0-47.0); Hemoglobin 11.9 g/dL (12.0-15.0); Mean Corpuscular HGB Conc 34.4 g/dl (32-36); Mean Corpuscular Hemoglobin 30.7 pg (26-34); Mean Corpuscular Volume 89.2 fl (80-100); Platelet Count Result 143 k/mm3 (150-375); Red Blood Count 3.88 M/mm3 (4.2-5.4); White Blood Count 4.2 K/mm3 (4.5-10.0)
[2025-07-28 05:52] LABS: Anion Gap 5 mmol/L (4-12); Blood Urea Nitrogen 5 mg/dL (7-17); Calcium 8.1 mg/dL (8.4-10.2); Carbon Dioxide 27 mmol/L (22-30); Chloride 100 mmol/L (98-107); Estimated CRCL calculation 56 ml/min; Estimated Glomerular Filt Rate > 60; Glucose 109 mg/dL (65-110); Potassium 3.2 mmol/L (3.4-5.0); Sodium 132 mmol/L (137-145)
--- NOTE | 2025-07-28 07:20 | WPDANESPN ---
Anes - Prog Note Post-Op Date/Time: 07/28/25 07:20 Cardiovascular status: normal Respiratory status: normal Airway patency: baseline Mental status: baseline Post-Op hydration status: normal Vital Signs: Last Vital Signs Temp 36.6 C 07/28/25 04:00 Pulse 78 07/28/25 04:00 Resp 16 07/28/25 04:00 BP 125/61 07/28/25 04:00 Pulse Ox 98 07/28/25 04:00 O2 Del Method Room Air 07/27/25 20:00 O2 Flow Rate 2 07/27/25 17:58 Pain Score (VAS): 3 I/O: Intake & Output 07/27/25 07/27/25 07/28/25 15:59 23:59 07:59 Intake Total 1073.3 76 350 Output Total 0 Balance 1073.3 76 350 Laboratory Tests 07/28/25 05:17 07/28/25 05:17 07/28/25 05:17 WBC 4.2 L RBC 3.88 L Hgb 11.9 L Hct 34.6 L MCV 89.2 MCH 30.7 MCHC 34.4 RDW 11.9 Plt Count 143 L MPV 8.7 Sodium 132 L Potassium 3.2 L Chloride 100 Carbon Dioxide 27 Anion Gap 5 BUN 5 L Creatinine 0.62 L Estim Creat Clear Calc 56 Estimated GFR > 60 Glucose 109 Lactic Acid 1.0 Calcium 8.1 L Post-procedural complaints: none Patient Feedback: Patient satisfied with anesthetic care.
[2025-07-28 08:00] VITALS: BP 132/63; PULSE 84; RESP 18; TEMP 36.7; O2SAT 96
[2025-07-28] MEDS: POTASSIUM CHLORIDE 20 MEQ ER TABLET 40 MEQ PO (08:48)
[2025-07-28] MEDS: PANTOPRAZOLE SODIUM IV 40 MG VIAL IV PUSH (08:49)
[2025-07-28] MEDS: HYDROcodone/acetaminophen (*CRX) 5-325 MG TABLET 1 TAB PO (08:55)
--- NOTE | 2025-07-28 11:20 | P.PNGS_ITS ---
Progress Note: A&P Assessment and Plan (1) Cholecystitis, acute with cholelithiasis: Code(s): K80.00 - Calculus of gallbladder with acute cholecystitis without obstruction Status: Acute Assessment and Plan: POD1 s/p lap dejah. Patient doing well. Ambulating independently, voiding appropriately, tolerating diet. Passing flatus. Pain tolerable with oral narcotics. Surgically stable for discharge with follow up in office in 2 weeks. Plan Discussed patient's case and plan of care with Dr. Purvis. Subjective Subjective Date/Time Seen: 07/28/25 11:20 Post Op day: 1 (lap dejah) Patient reports: no new complaints, tolerating a regular diet, flatus and afebrile Interval history: Patient doing well today. No acute events overnight. Notes some abdominal incisional pain. Tolerable with [place]. Exam Const: General: comfortable and no acute distress GI: Inspection: non-distended GI Palp: Yes Soft to palpation, Yes Tenderness to palpation present (GI) (diffusely brynn around incisions) and No Guarding due to palpation present (GI) Auscultation: normal bowel sounds Other: incisions are clean and dry with glue intact. Surrounding ecchymosis, but no redness or signs of infection. Objective Data Vital Signs Vital Signs: Vital Signs - 24 hr 07/27/25 13:30 07/27/25 16:17 07/27/25 16:30 Temperature 98.1 F 97.8 F Pulse Rate 78 87 66 Respiratory Rate 18 24 H 20 Blood Pressure 139/58 L 123/61 119/70 Pulse Oximetry 100 98 100 Oxygen Delivery Room Air Simple Face Mask Simple Face Mask Oxygen Flow Rate 8 8 07/27/25 16:45 07/27/25 17:00 07/27/25 17:15 Temperature Pulse Rate 72 67 73 Respiratory Rate 24 H 24 H 18 Blood Pressure 133/64 121/58 L 123/65 Pulse Oximetry 94 95 96 Oxygen Delivery Room Air Room Air Room Air Oxygen Flow Rate 07/27/25 17:30 07/27/25 17:58 07/27/25 20:00 Temperature Pulse Rate 74 74 70 Respiratory Rate 16 16 Blood Pressure 116/53 L Pulse Oximetry 94 94 93 Oxygen Delivery Room Air Nasal Cannula Room Air Oxygen Flow Rate 2 07/27/25 20:00 07/28/25 00:00 07/28/25 04:00 Temperature 98.7 F 98.1 F 97.8 F Pulse Rate 85 86 78 Respiratory Rate 16 16 16 Blood Pressure 116/58 L 123/65 125/61 Pulse Oximetry 99 94 98 Oxygen Delivery Oxygen Flow Rate 07/28/25 08:00 07/28/25 08:30 Temperature 98.1 F Pulse Rate 84 Respiratory Rate 18 Blood Pressure 132/63 Pulse Oximetry 96 Oxygen Delivery Room Air Oxygen Flow Rate Intake/Output Intake/Output: Intake & Output 07/25/25 07/26/25 07/27/25 07/28/25 23:59 23:59 23:59 23:59 Intake Total 1780 2071.0 468 Output Total 25 0 Balance 1755 2071.0 468 Meds/Results Radiology Results: ITS Impressions Abdomen Ultrasound 07/26/25 10:15 IMPRESSION: 1. Gallstones. No convincing evidence of cholecystitis but recommend Starks's sign on clinical exam. If clinical ambiguity, consider HIDA scan. 2. Indeterminate hyperechoic liver focus. Recommend CT liver protocol. Labs Labs: Laboratory Results - last 24 hr 07/28/25 05:17 WBC 4.2 L RBC 3.88 L Hgb 11.9 L Hct 34.6 L MCV 89.2 MCH 30.7 MCHC 34.4 RDW 11.9 Plt Count 143 L MPV 8.7 Sodium 132 L Potassium 3.2 L Chloride 100 Carbon Dioxide 27 Anion Gap 5 BUN 5 L Creatinine 0.62 L Estim Creat Clear Calc 56 Estimated GFR > 60 Glucose 109 Lactic Acid 1.0 Calcium 8.1 L
--- NOTE | 2025-07-28 15:09 | P.DS_ITS ---
DS: Admitting Diagnosis Discharge Date 07/28/25 Admitting Diagnosis - acute cholecystitis with cholelithiasis DS: Discharge Diagnosis Discharge Diagnosis (1) Cholelithiasis: Code(s): K80.20 - Calculus of gallbladder without cholecystitis without obstruction Status: Acute (2) Essential (primary) hypertension: Code(s): I10 - Essential (primary) hypertension Status: Acute (3) Gastro-esophageal reflux disease without esophagitis: Code(s): K21.9 - Gastro-esophageal reflux disease without esophagitis Status: Acute (4) Pure hypercholesterolemia: Code(s): E78.00 - Pure hypercholesterolemia, unspecified Status: Acute (5) Osteoporosis: Code(s): M81.0 - Age-related osteoporosis without current pathological fracture Status: Acute DS: Summary Hospital Course Reason for hospitalization: - acute cholecystitis with cholelithiasis Hospital Course: The patient is a 70-year-old female with a history of acid reflux, hypertension, mild cognitive impairment, osteoporosis, and diverticulosis who was admitted on 07/26/25 for evaluation and management of worsening right upper quadrant abdominal pain of three months? duration, which had become more severe and persistent over the preceding days. She had multiple recent ED visits for similar complaints, with imaging initially showing gallbladder sludge and later gallstones with mild wall thickening, but without definitive evidence of acute cholecystitis. On admission, she was afebrile and hemodynamically stable, with a positive Starks?s sign and right upper quadrant tenderness. Laboratory studies were notable for mild hyponatremia, hypokalemia, and thrombocytopenia, but no leukocytosis or significant transaminitis. Abdominal ultrasound confirmed cholelithiasis, and given her persistent symptoms and clinical findings, general surgery was consulted. After discussion, the patient elected to proceed with surgical intervention. She was started on IV fluids, antiemetics, and antibiotics (levofloxacin and metronidazole, given her penicillin allergy), and was made NPO in preparation for surgery. On 07/27/25, she underwent an uncomplicated laparoscopic cholecystectomy for acute cholecystitis, with intraoperative findings of a severely inflamed and distended gallbladder with pericholecystic fluid and thick sludge. There were no intraoperative complications, and estimated blood loss was minimal. Postoperatively, the patient recovered well, with good pain control on oral narcotics, tolerating a regular diet, ambulating independently, and passing flatus. Her incisions remained clean and dry, with no signs of infection. She remained afebrile and hemodynamically stable throughout her postoperative course. Laboratory values on post-op day 1 showed stable mild cytopenias and electrolyte abnormalities, but no evidence of infection or organ dysfunction. She was deemed stable for discharge home on post-op day 1, with instructions for routine follow-up in the surgery clinic in two weeks. She had persistent mild hypokalemia and was discharged on p.o. potassium supplementation with instructions to follow-up with her PCP for repeat BMP in 5-7 days. Also encouraged to follow with the PCP regarding liver cyst noted on admission imaging. Status at Discharge Functional status at discharge: independent ambulation Time Spent with Patient Time attestation: Total time spent providing and/or coordinating discharge services: Time spent: Greater than 30 minutes Exam Narrative: General: NAD Eyes: EOMI ENT: neck supple Cardiovascular: Regular rate and rhythm Respiratory: Clear to auscultation, respirations even and unlabored on RA Gastrointestinal: Soft, non tender Genitourinary: no suprapubic tenderness Musculoskeletal: No edema Skin: warm, dry Neuro: Alert. Psych: Mood appropriate DS: Data Data Completed and Pending Completed studies during hospitalization: ITS Impressions Abdomen Ultrasound 07/26/25 10:15 IMPRESSION: 1. Gallstones. No convincing evidence of cholecystitis but recommend Starks's sign on clinical exam. If clinical ambiguity, consider HIDA scan. 2. Indeterminate hyperechoic liver focus. Recommend CT liver protocol. Pending studies at discharge: Pending at discharge 07/27/25 15:37 Surgical [PTH] Routine Labs on day of discharge: Labs from last 24 hours 07/28/25 05:17 WBC 4.2 L RBC 3.88 L Hgb 11.9 L Hct 34.6 L MCV 89.2 MCH 30.7 MCHC 34.4 RDW 11.9 Plt Count 143 L MPV 8.7 Sodium 132 L Potassium 3.2 L Chloride 100 Carbon Dioxide 27 Anion Gap 5 BUN 5 L Creatinine 0.62 L Estim Creat Clear Calc 56 Estimated GFR > 60 Glucose 109 Lactic Acid 1.0 Calcium 8.1 L Discharge Plan Discharge Attending physician on discharge: Frantz Lamb Oca Consulting providers: Ervin Case; Teagan Purvis; Tamiko Spann Discharging Clinician: Ross,Tamiko J. Anticipated Discharge Date/Time: 07/28/25 09:26 Patient Disposition: Home Activity: may shower and as tolerated Diet: as tolerated Wound Care Instructions: incision open to air Discharge Instructions: DISCHARGE INSTRUCTION SHEET FOR HERNIA, GALLBLADDER AND APPENDIX SURGERIES DR. PURVIS PATIENT TO TAKE HOME 1. May shower in 24 hours, no soaking in bath x 2weeks. 2. Call office for: * Wound increasingly painful or bleeding * Vomiting * Fever of greater than 101 degrees 3. If no bowel movement for three days, take 1 oz. (30 ml) Milk of Magnesia or MiraLax 17g 1 to 2 times daily. 4. No heavy lifting > 10-15 pounds x 6 weeks for hernia repairs and 2 weeks for laparoscopic cholecystectomy or appendectomy. 5. No driving for 3 days or while taking narcotic pain medications. 6. Ice to surgical site for 48 hours (30 min on, then 30 min off). 7. Up walking 10-30 minutes three times per day. 8. Resume previous home medications. 9. Follow-up 10-14 days in office for wound check or as previously scheduled. ([phone]) 10. Oral pain medications prescription to be sent to pharmacy. Take Tylenol 500mg every 6 hours and Ibuprofen 600mg every 6 hours for the first 2 days, then as needed. 11. NUTRITION: Start out by drinking fluids and increase your diet as tolerated. If you experience nausea, try dry toast, crackers, and 7-UP. If nausea or vomiting persists, contact your surgeon?s office. 12. Gallbladders-Low Fat Diet for 2 weeks (send care note of low fat diet) 13. Inguinal Hernias-wear scrotal support for 48 hours 14. Abdominal Hernias-if sent home with abdominal binder, wear for the first 2 weeks (may remove to shower or at night to sleep). 15. continue potassium supplementation for 3 days. Have your primary care provider recheck your potassium levels at your follow-up visit. Your ultrasound showed that you have a potential cyst on your liver. The radiologist recommended that you have a dedicated CT scan to look at your liver. This can be arranged by your PCP. Revised 08/2020 Patient Instructions: Antibiotic Form Patient Language: Eritrean Stand Alone Forms: General Discharge Information Follow-up/Referrals: Franco Prescott MD [Primary Care Provider, Family Practice] - Call for Appointment Referral Note: 1 week for hospital follow-up and recheck potassium Teagan Purvis MD [Physician, General Surgery] - 2 Weeks Discharge Medications: New hydrocodone-acetaminophen 5-325 mg tablet 1 tablet PO Q6H PRN (Reason: pain) Qty: 20 0RF potassium chloride [Klor-Con M20] 20 mEq tablet,ER particles/crystals 20 meq PO DAILY Qty: 3 0RF Continued baclofen 5 mg tablet 5 mg PO BID PRN (Reason: muscle spasm) Qty: 14 0RF pantoprazole 40 mg tablet,delayed release (DR/EC) 40 mg PO QAM Qty: 90 2RF hydrocodone-acetaminophen 5-325 mg tablet 1 tablet PO Q8H PRN (Reason: pain) alendronate 70 mg tablet 70 mg PO WEEKLY Qty: 12 3RF dicyclomine 10 mg capsule See Rx Instructions .ROUTE .COMPLEX Qty: 100 2RF Dose Instruction: Take 1 capsule by mouth 4 times daily Rx Instructions: Take 1 capsule by mouth 4 times daily metoprolol succinate 25 mg tablet extended release 24 hr See Rx Instructions .ROUTE .COMPLEX Qty: 90 2RF Dose Instruction: Take 1 tablet by mouth once daily Rx Instructions: Take 1 tablet by mouth once daily donepezil 5 mg tablet See Rx Instructions .ROUTE .COMPLEX Qty: 90 2RF Dose Instruction: TAKE 1 TABLET BY MOUTH EVERY DAY AT BEDTIME Rx Instructions: TAKE 1 TABLET BY MOUTH EVERY DAY AT BEDTIME atorvastatin 10 mg tablet See Rx Instructions .ROUTE .COMPLEX Qty: 90 2RF Dose Instruction: Take 1 tablet by mouth once daily Rx Instructions: Take 1 tablet by mouth once daily hydrochlorothiazide 25 mg tablet 12.5 mg PO DAILY Qty: 45 1RF Date of admission: 07/27/25 18:15 Primary Care Provider: Franco Prescott Admitting Provider: Pollo Kimbrough Attending physician on admission: Pollo Kimbrough Condition: Stable
== END 2025-07-28 11:05 | disposition home or self-care (01) | DRG 418 ==
PROVIDERS: Internal Medicine; Nurse Practitioner; Surgery; Admitting Provider Internal Medicine; PCP Family Medicine; Visit Provider Physician Assistant
PROC: 0FT44ZZ Resection of Gallbladder, Percutaneous Endoscopic Approach (ICD-10-PCS; CPT 47562; principal; 2025-07-27 14:15)
DX: K80.00 Calculus of gallbladder with acute cholecystitis without obstruction (principal); E87.1 Hypo-osmolality and hyponatremia; D69.6 Thrombocytopenia, unspecified; I10 Essential (primary) hypertension; E78.00 Pure hypercholesterolemia, unspecified; E87.6 Hypokalemia; K21.9 Gastro-esophageal reflux disease without esophagitis; K57.90 Diverticulosis of intestine, part unspecified, without perforation or abscess without bleeding; M81.0 Age-related osteoporosis without current pathological fracture; G31.84 Mild cognitive impairment of uncertain or unknown etiology
CPT/HCPCS: 36415; 76705; 80048; 82948; 83605; 83735; 85027; 85055; 88304; A9270; G0378; G0379; J1100; J1171; J1836; J1956; J2405; J2470; J2704; J3010; J7120